=== PATIENT | female | born 1965 | race African-American/Black ===

== ENCOUNTER 2016-10-29 18:50 | Inpatient (IN) | payer MEDICAID ==
[~2016-10-29] VITALS: Ht 167.6 cm; Wt 86.2 kg
[~2016-10-29 18:50] MED LIST: ATARAX25 MG ORAL; CEPHALEXIN500 MG ORAL; CODEINE-GUAIFE120 ML PO; DITROPAN10 MG ORAL; DULERA 200 MCG/13 GM IH; EPZICOM1 TAB ORAL; FUROSEMIDE20 M1 ORAL; GEODON40 MG ORAL; IBUPROFEN600 MG ORAL; LEVAQUIN500 MG ORAL; MEDROL4 MG ORAL; MIRTAZAPINE15 M3 ORAL; NICODERM CQ1 EAC1 TD; NORVIR100 MG ORAL; OYSCO 500+D TA1 EAC1 PO; PROAIR HFA8.5 GM INH; REYATAZ150 MG ORAL; TOPIRAMATE100 MG ORAL; VIREAD300 MG ORAL; mvi; triumeq
[2016-10-29 18:54] VITALS: BP 130/88
[2016-10-29] MEDS ORDERED: PredniSONE 20mg tab ORAL ONE (19:00)
[2016-10-29] MEDS: Albuterol ud Inhalation HHN SCH ×6 (19:07→22:15)
[2016-10-29] MEDS: Ipratropium 0.02% Inh Soln 2.5ml UD HHN SCH ×6 (19:07→22:15)
[2016-10-29] MEDS ORDERED: Ipratropium 0.02% Inh Soln 2.5ml UD HHN ONE (20:15)
[2016-10-29] MEDS ORDERED: Albuterol ud Inhalation HHN ONE (20:15)
[2016-10-29 21:19] LABS: MEAN CORPUSCULAR HEMOGLOBIN 30.7 PG (27.0-31.0); MEAN CORPUSCULAR HGB CONC 30.1 G/DL (32.0-36.0); MEAN CORPUSCULAR VOLUME 102 FL (80-99); MEAN PLATELET VOLUME 9.5 FL (6.5-10.1); PLATELET COUNT 205 K/UL (150-450); RED BLOOD COUNT 5.32 M/UL (4.20-5.40)
[2016-10-29 21:25] LABS: NEUTROPHILS % (AUTO) 86.8 % (45.0-75.0)
[2016-10-29 21:26] LABS: BASOPHILS % (AUTO) 0.7 % (0.0-2.0); LYMPHOCYTES % (AUTO) 8.2 % (20.0-45.0); MONOCYTES % (AUTO) 4.3 % (1.0-10.0)
[2016-10-29] MEDS ORDERED: Azithromycin 500 MG in NS 275 ML IV ONE (21:30)
[2016-10-29] MEDS ORDERED: cefTRIAXone 1 GM in NS 55 ML IV ONE (21:30)
[2016-10-29 21:39] VITALS: BP 123/70
[2016-10-29] MEDS ORDERED: Azithromycin Inj IV ONE (21:46)
[2016-10-29 21:58] LABS: ALANINE AMINOTRANSFERASE 35 U/L (3-33); ALBUMIN/GLOBULIN RATIO 1.1 (1.0-2.7); ANION GAP 13 (5-15); ASPARTATE AMINO TRANSFERASE 31 U/L (5-40); CALCIUM 8.5 mg/dL (8.6-10.2); CARBON DIOXIDE 29 mEQ/L (20-30); CHLORIDE 98 mEQ/L (98-107); CREATININE 0.9 mg/dL (0.5-0.9); GLOMERULAR FILTRATION RATE > 60 mL/min (>60); HEMOLYSIS 39; POTASSIUM 4.2 mEQ/L (3.4-4.9); SODIUM 140 mEQ/L (135-145); TOTAL PROTEIN 6.5 g/dL (6.6-8.7); TROPONIN I < 0.30 ng/mL (<=0.30)
[2016-10-29 22:08] LABS: CKMB 5.5 ng/mL (< 3.8)
--- NOTE | 2016-10-29 22:33 | Emergency Room Report ---
History of Present Illness General Chief Complaint: Dyspnea/Respdistress Source: Patient, EMS Present Illness HPI 51-year-old female presents to ED for evaluation. Per EMS patient has been having wheezing shortness of breath since about 4 PM today. Patient notes history of asthma. States inhaler is not helping. Per EMS patient was initially hypoxic and slowly improving with breathing treatments. She denies any chest pain. Denies any cough. Denies any fevers or chills. No other aggravating relieving factors. Denies any other associated symptoms Allergies: Coded Allergies: SULFA (SULFONAMIDE ANTIBIOTICS) (Verified Allergy, Unknown, 08/05/16) Patient History Past Medical History: DM, asthma, COPD, psych hx Past Surgical History: none Pertinent Family History: none Social History: Denies: alcohol use, drug use, smoking Now: No Immunizations: UTD Reviewed Nursing Documentation: PMH: Agreed, PSxH: Agreed Nursing Documentation-PMH Past Medical History: No History, Except For Hx Asthma: Yes Hx COPD: Yes Hx Diabetes: Yes Hx Cancer: No Hx Gastrointestinal Problems: No Hx Neurological Problems: Yes - schizoprenia Hx Cerebrovascular Accident: No Review of Systems All Other Systems: negative except mentioned in HPI Physical Exam Vital Signs Date Time Temp Pulse Resp B/P Pulse Ox O2 Delivery O2 Flow Rate FiO2 10/29/16 18:47 92 22 112/69 94 Room Air 10/29/16 18:54 98.8 10/29/16 20:02 2.0 28 Sp02 EP Interpretation: reviewed, normal General Appearance: no apparent distress, alert, GCS 15, non-toxic, obese Head: normocephalic Eyes: bilateral eye PERRL, bilateral eye normal inspection ENT: normal ENT inspection Neck: normal inspection Respiratory: decreased breath sounds, wheezing Cardiovascular #1: regular rate, rhythm, no edema Gastrointestinal: normal inspection Rectal: deferred Genitourinary: no CVA tenderness Musculoskeletal: normal inspection Neurologic: alert, oriented x3, responsive, motor strength/tone normal, sensory intact, speech normal Psychiatric: normal inspection Skin: normal inspection Lymphatic: normal inspection Medical Decision Making Diagnostic Impression: Primary Impression: Pneumonia Qualified Codes: J18.9 - Pneumonia, unspecified organism Additional Impression: COPD (chronic obstructive pulmonary disease) Qualified Codes: J44.9 - Chronic obstructive pulmonary disease, unspecified ER Course Hospital Course 51-year-old F presenting to ED with respiratory distress, wheezing Differential diagnoses include: Pneumonia, CHF exacerbation, pneumothorax, fluid overload Clinical course Patient placed on stretcher. On resident programs assistant with hypoxia on room air and tachycardia. After initial history and physical, I ordered nebulizer treatments , prednisone. After 3 treatments patient showed no signs of improvement, remains hypoxic. IV started, given magnesium, breathing treatments continue I ordered labs, IV fluids, EKG, chest x-ray, blood cultures, UA. Labs -leukocytosis noted, hemoglobin/hematocrit stable, electrolytes okay, lactate okay troponins negative CXR - R middle lobe infiltrate EKG - no ishemic changes abx given. Case discussed with Dr. webster and he agreed to the patient to his service for further care and support I feel this is a highly complex case requiring extensive working including EKG/ Rhythm strip, Xray/CT/US, Blood/urine lab work, repeat exams while in ED, and administration of strong opiates/narcotics for pain control, admission to hospital or close patient follow up. Diagnosis - pneumonia, COPD Patient admitted to telemetry in serious condition Labs Test 10/29/16 20:45 White Blood Count 17.0 K/UL (4.8-10.8) Red Blood Count 5.32 M/UL (4.20-5.40) Hemoglobin 16.3 G/DL (12.0-16.0) Hematocrit 54.3 % (37.0-47.0) Mean Corpuscular Volume 102 FL (80-99) Mean Corpuscular Hemoglobin 30.7 PG (27.0-31.0) Mean Corpuscular Hemoglobin Concent 30.1 G/DL (32.0-36.0) Red Cell Distribution Width 16.0 % (11.6-14.8) Platelet Count 205 K/UL (150-450) Mean Platelet Volume 9.5 FL (6.5-10.1) Neutrophils (%) (Auto) 86.8 % (45.0-75.0) Lymphocytes (%) (Auto) 8.2 % (20.0-45.0) Monocytes (%) (Auto) 4.3 % (1.0-10.0) Eosinophils (%) (Auto) 0.0 % (0.0-3.0) Basophils (%) (Auto) 0.7 % (0.0-2.0) Sodium Level 140 mEQ/L (135-145) Potassium Level 4.2 mEQ/L (3.4-4.9) Chloride Level 98 mEQ/L (98-107) Carbon Dioxide Level 29 mEQ/L (20-30) Anion Gap 13 (5-15) Blood Urea Nitrogen 12 mg/dL (7-23) Creatinine 0.9 mg/dL (0.5-0.9) Estimat Glomerular Filtration Rate > 60 mL/min (>60) Glucose Level 137 mg/dL (74-106) Lactic Acid Level 0.80 mmol/L (0.66-2.22) Calcium Level 8.5 mg/dL (8.6-10.2) Total Bilirubin 0.2 mg/dL (0.0-1.2) Aspartate Amino Transf (AST/SGOT) 31 U/L (5-40) Alanine Aminotransferase (ALT/SGPT) 35 U/L (3-33) Alkaline Phosphatase 57 U/L (35-104) Total Creatine Kinase 125 U/L (26-140) Creatine Kinase MB 5.5 ng/mL (< 3.8) Creatine Kinase MB Relative Index 4.4 Troponin I < 0.30 ng/mL (<=0.30) Pro-B-Type Natriuretic Peptide 1766 pg/mL (0-125) Total Protein 6.5 g/dL (6.6-8.7) Albumin 3.5 g/dL (3.5-5.2) Globulin 3.0 g/dL Albumin/Globulin Ratio 1.1 (1.0-2.7) EKG Diagnostic Results Rate: normal Rhythm: NSR ST Segments: no acute changes ASA given to the pt in ED: No Rhythm Strip Diag. Results EP Interpretation: yes Rhythm: NSR, no PVC's, no ectopy Chest X-Ray Diagnostic Results EP Interpretation: Yes Findings: no pneumothorax, no acute cardiopulmonary disease, other - R middle lobe infiltrate Number of Views: 1 Last Vital Signs Date Time Temp Pulse Resp B/P Pulse Ox O2 Delivery O2 Flow Rate FiO2 10/29/16 22:15 103 23 92 Nasal Cannula 3.0 32 10/29/16 21:39 98.8 123/70 Status: improved Disposition: ADMITTED INPATIENT Condition: Serious Referrals: NOT CHOSEN SHERWIN/,REFERRING (PCP) MADELINE TREVINO M.D. Oct 29, 2016 22:33
[2016-10-29] MEDS ORDERED: LORazepam Inj 2mg/ml 1ml IV PRN (23:15)
[2016-10-29] MEDS ORDERED: Ketorolac 30mg Inj IV PRN (23:15)
[2016-10-29] MEDS ORDERED: Morphine Sulfate 2mg/ml Inj IVP PRN (23:15)
[2016-10-29] MEDS ORDERED: Nitroglycerin Subl 0.4mg tab (Bottle Of 25) SL PRN (23:15)
[2016-10-29] MEDS ORDERED: DuoNeb 0.5-3(2.5)mg/3ml neb HHN PRN (23:15)
[2016-10-29] MEDS ORDERED: Promethazine/Codeine 5ml UD ORAL PRN (23:15)
[2016-10-30] VITALS (7 sets, daily range): BP systolic 102–135; BP diastolic 62–87
[2016-10-30] MEDS ORDERED: Solu-MEDROL 125mg Inj IV SCH
[2016-10-30] MEDS ORDERED: Azithromycin Inj IV ONE (00:25)
[2016-10-30] MEDS ORDERED: DuoNeb 0.5-3(2.5)mg/3ml neb HHN PRN (00:45)
[2016-10-30] MEDS ORDERED: Ketorolac 30mg Inj IV PRN (00:45)
[2016-10-30] MEDS ORDERED: Nitroglycerin Subl 0.4mg tab (Bottle Of 25) SL PRN (00:45)
[2016-10-30] MEDS ORDERED: Promethazine/Codeine 5ml UD ORAL PRN (00:45)
[2016-10-30] MEDS ORDERED: LORazepam Inj 2mg/ml 1ml IV PRN (00:45)
[2016-10-30] MEDS ORDERED: Morphine Sulfate 2mg/ml Inj IVP PRN (00:45)
[2016-10-30] MEDS: Solu-MEDROL 125mg Inj IV SCH ×4 (02:25→20:45)
[2016-10-30] MEDS ORDERED: Zosyn 3.375gm inj ONE (03:09)
[2016-10-30] MEDS: Zosyn 3.375gm q8h **Extended infusion IVPB SCH ×6 (03:40→18:32)
[2016-10-30] MEDS: NovoLOG Insulin Flexpen SUBQ SCH ×4 (05:54→21:00)
[2016-10-30] MEDS ORDERED: Piperacillin/Tazobactam 2.25 GM in D5W 55 ML IV SCH ×4 (06:00)
[2016-10-30] MEDS ORDERED: NovoLOG Insulin Flexpen SUBQ SCH (06:30)
[2016-10-30] MEDS: Theophylline ER 100mg ORAL SCH ×3 (08:32→20:45)
[2016-10-30] MEDS: Heparin 5000 units/ml inj SUBQ SCH ×2 (08:33→20:49)
[2016-10-30] MEDS: Epzicom tab ORAL SCH ×2 (08:34→09:00)
[2016-10-30] MEDS: Ritonavir 100mg tab ORAL SCH ×2 (08:35→09:00)
[2016-10-30] MEDS ORDERED: Ritonavir 100mg tab ORAL SCH (09:00)
[2016-10-30] MEDS ORDERED: Theophylline ER 100mg ORAL SCH (09:00)
[2016-10-30] MEDS ORDERED: Heparin 5000 units/ml inj SUBQ SCH (09:00)
[2016-10-30] MEDS ORDERED: Epzicom tab ORAL SCH (09:00)
--- NOTE | 2016-10-30 10:15 | Diagnostic Imaging Report ---
Indications: Shortness of breath Technique: Portable AP chest Findings: Comparison: 09/22 16 Hazy alveolar opacity has developed in the right parahilar region. Linear density persists in the right midlung. Left lung, bilateral pleural surfaces remain clear. Cardiac silhouette remains upper limits of normal in size. Mild pulmonary vascular redistribution persists. IMPRESSION: Development of alveolar opacity likely in the basal aspect of the right upper lobe, compatible with but not specific for pneumonia Persistent subsegmental atelectasis versus scarring versus right minor fissure pleural thickening right midlung Persistent borderline cardiomegaly with mild pulmonary venous hypertension
--- NOTE | 2016-10-30 13:04 | History and Physical ---
History of Present Illness General Date patient seen: Oct 30, 2016 Reason for Hospitalization: Dyspnea/Respdistress Present Illness HPI 51-year-old female with hx of asthma, HIV presented to ED for evaluation of shortness of breath since about 4 PM today. Per EMS patient was initially hypoxic and slowly improving with breathing treatments. No other aggravating relieving factors. Denies any other associated symptoms. Patient's cxr showed RUL infiltrate. she is visibly short of breath with episodes of cough during my interview. Allergies: Coded Allergies: SULFA (SULFONAMIDE ANTIBIOTICS) (Verified Allergy, Unknown, 08/05/16) Medication History Scheduled Albuterol Sulfate* (Proair Hfa*), 1 PUFF INH Q6H, (Reported) Atazanavir Sulfate (Reyataz), 300 MG ORAL DAILY, (Reported) Calcium Carbonate/Vitamin D3 (Oysco 500+D Tablet), 1 EACH PO BID, (Reported) Epzicom (Epzicom Tablet), 1 TAB ORAL DAILY, (Reported) Mirtazapine* (Mirtazapine*), 45 MG ORAL BEDTIME, (Reported) Oxybutynin Chloride (Oxybutynin Chloride), 5 MG ORAL BID, (Reported) Ritonavir* (Norvir*), 100 MG ORAL DAILY, (Reported) Tenofovir Disoproxil Fumarate* (Viread*), 300 MG ORAL DAILY, (Reported) Topiramate* (Topamax*), 100 MG ORAL TWICE A DAY, (Reported) Ziprasidone Hcl* (Geodon*), 80 MG ORAL DAILY, (Reported) Miscellaneous Medications [mvi], (Reported) [triumeq], Unknown Dose, (Reported) Discontinued Medications Furosemide* (Lasix*), 20 MG ORAL DAILY Discontinued Reason: Pt stopped taking med Guaifenesin/Codeine Phosphate (Codeine-Guaifen 10-100 mg/5 ml), 120 ML PO QID PRN Discontinued Reason: Pt stopped taking med Hydroxyzine HCl (Hydroxyzine HCl), 25 MG ORAL FOUR TIMES A DAY, (Reported) Discontinued Reason: Pt stopped taking med Mometasone/Formoterol (Dulera 200 Mcg/5 Mcg Inhaler), 13 GM IH, (Reported) Discontinued Reason: Pt stopped taking med Nicotine 14MG Patch* (Nicoderm Cq 14MG*), 1 EACH TD DAILY, (Reported) Discontinued Reason: Pt stopped taking med Patient History Healthcare decision maker Resuscitation status Full Code Advanced Directive on File Past Medical/Surgical History Past Medical/Surgical History: (1) Pneumonia (2) COPD (chronic obstructive pulmonary disease) (3) Cardiomegaly (4) HIV disease Review of Systems All Other Systems: negative except mentioned in HPI Physical Exam General Appearance: WD/WN Lines, tubes and drains: peripheral, central line HEENT: atraumatic Neck: non-tender, normal alignment Respiratory/Chest: chest wall non-tender, lungs clear Cardiovascular/Chest: normal peripheral pulses, normal rate Abdomen: normal bowel sounds, non tender Genitourinary/Rectal: normal genital exam Extremities: normal range of motion Last 24 Hour Vital Signs Date Time Temp Pulse Resp B/P Pulse Ox O2 Delivery O2 Flow Rate FiO2 10/30/16 12:46 97.5 91 20 135/84 93 Nasal Cannula 3.0 10/30/16 08:24 97.0 96 20 123/62 94 Nasal Cannula 3.0 10/30/16 08:09 82 20 Nasal Cannula 2.0 28 10/30/16 08:00 95 10/30/16 04:10 97.2 92 20 102/76 95 Room Air 10/30/16 04:00 94 10/30/16 01:00 98.5 95 20 112/87 98 Nasal Cannula 2.0 10/30/16 00:47 98.8 103 22 128/72 85 Nasal Cannula 2.0 32 10/30/16 00:26 98.8 103 22 128/72 85 Nasal Cannula 2.0 32 10/29/16 22:35 99 25 93 Simple Mask 6.0 10/29/16 22:15 103 23 92 Nasal Cannula 3.0 32 10/29/16 22:14 103 23 92 Nasal Cannula 3.0 32 10/29/16 21:59 99 25 95 Nasal Cannula 3.0 32 10/29/16 21:59 101 24 94 Nasal Cannula 3.0 32 10/29/16 21:45 97 24 90 Nasal Cannula 3.0 32 10/29/16 21:39 98.8 97 24 123/70 85 Nasal Cannula 3.0 32 10/29/16 20:38 103 24 94 Nasal Cannula 3.0 32 10/29/16 20:23 102 23 91 Nasal Cannula 2.0 28 10/29/16 20:02 103 23 96 Nasal Cannula 2.0 28 10/29/16 19:36 104 23 97 Room Air 10/29/16 19:36 104 23 97 Room Air 10/29/16 19:19 106 20 99 Room Air 10/29/16 19:17 105 20 99 Room Air 10/29/16 19:02 106 19 Room Air 10/29/16 19:02 105 19 97 Room Air 10/29/16 18:57 105 20 Room Air 10/29/16 18:54 98.8 105 20 130/88 96 Room Air 10/29/16 18:47 92 22 112/69 94 Room Air Intake and Output 10/29/16 10/30/16 19:00 07:00 Intake Total 337.5 ml Balance 337.5 ml Intake IV Total 337.5 ml Laboratory Tests Test 10/29/16 20:45 White Blood Count 17.0 K/UL (4.8-10.8) H Red Blood Count 5.32 M/UL (4.20-5.40) Hemoglobin 16.3 G/DL (12.0-16.0) H Hematocrit 54.3 % (37.0-47.0) H Mean Corpuscular Volume 102 FL (80-99) H Mean Corpuscular Hemoglobin 30.7 PG (27.0-31.0) Mean Corpuscular Hemoglobin Concent 30.1 G/DL (32.0-36.0) L Red Cell Distribution Width 16.0 % (11.6-14.8) H Platelet Count 205 K/UL (150-450) Mean Platelet Volume 9.5 FL (6.5-10.1) Neutrophils (%) (Auto) 86.8 % (45.0-75.0) H Lymphocytes (%) (Auto) 8.2 % (20.0-45.0) L Monocytes (%) (Auto) 4.3 % (1.0-10.0) Eosinophils (%) (Auto) 0.0 % (0.0-3.0) Basophils (%) (Auto) 0.7 % (0.0-2.0) Sodium Level 140 mEQ/L (135-145) Potassium Level 4.2 mEQ/L (3.4-4.9) Chloride Level 98 mEQ/L (98-107) Carbon Dioxide Level 29 mEQ/L (20-30) Anion Gap 13 (5-15) Blood Urea Nitrogen 12 mg/dL (7-23) Creatinine 0.9 mg/dL (0.5-0.9) Estimat Glomerular Filtration Rate > 60 mL/min (>60) Glucose Level 137 mg/dL (74-106) H Lactic Acid Level 0.80 mmol/L (0.66-2.22) Calcium Level 8.5 mg/dL (8.6-10.2) L Total Bilirubin 0.2 mg/dL (0.0-1.2) Aspartate Amino Transf (AST/SGOT) 31 U/L (5-40) Alanine Aminotransferase (ALT/SGPT) 35 U/L (3-33) H Alkaline Phosphatase 57 U/L (35-104) Total Creatine Kinase 125 U/L (26-140) Creatine Kinase MB 5.5 ng/mL (< 3.8) H Creatine Kinase MB Relative Index 4.4 Troponin I < 0.30 ng/mL (<=0.30) Pro-B-Type Natriuretic Peptide 1766 pg/mL (0-125) H Total Protein 6.5 g/dL (6.6-8.7) L Albumin 3.5 g/dL (3.5-5.2) Globulin 3.0 g/dL Albumin/Globulin Ratio 1.1 (1.0-2.7) Height (Feet): 5 Height (Inches): 6.00 Weight (Pounds): 190 Medications Current Medications Medications (Trade) Dose Ordered Sig/Jud Route PRN Reason Start Time Stop Time Status Last Admin Dose Admin Abacavir/ Lamivudine (Epzicom) 1 tab DAILY ORAL 10/30/16 09:00 11/29/16 08:59 Albuterol/ Ipratropium (DuoNeb 0.5-3(2.5)mg/3ml) 3 ml Q4H PRN HHN dyspnea 10/30/16 00:45 11/04/16 00:44 Dextrose (Dextrose 50%) STAT PRN IV Hypoglycemia 10/30/16 00:45 11/28/16 23:14 Heparin Sodium (Porcine) (Heparin 5000 units/ml) 5,000 units EVERY 12 HOURS SUBQ 10/30/16 09:00 11/29/16 08:59 10/30/16 08:33 Insulin Aspart (NovoLOG) BEFORE MEALS AND HS SUBQ 10/30/16 06:30 11/29/16 06:29 Ketorolac Tromethamine (Toradol 30mg) 30 mg Q8H PRN IV moderate pain 4-6 10/30/16 00:45 11/04/16 00:44 Lorazepam (Ativan 2mg/ml 1ml) 0.5 mg Q4H PRN IV For Anxiety 10/30/16 00:45 11/05/16 23:14 Methylprednisolone Sodium Succinate (Solu-MEDROL) 60 mg Q6H IV 10/30/16 02:00 11/29/16 01:59 10/30/16 08:33 Mirtazapine (Remeron) 45 mg BEDTIME ORAL 10/30/16 02:45 11/29/16 02:44 Morphine Sulfate (Morphine Sulfate) 2 mg Q4H PRN IVP severe pain 7-10 10/30/16 00:45 11/06/16 00:44 Nitroglycerin (Ntg) 0.4 mg Q5M X 3 DOSES PRN SL Prn Chest Pain 10/30/16 00:45 11/28/16 23:14 Ondansetron HCl (Zofran) 4 mg Q6H PRN IVP Nausea & Vomiting 10/30/16 00:45 11/28/16 23:14 Piperacillin Sod/ Tazobactam Sod/ Dextrose (Zosyn/D5W) 110 ml @ 27.5 mls/hr Q8H IVPB 10/30/16 03:00 11/06/16 02:59 10/30/16 12:15 Promethazine HCl/ Codeine (Phenergan with Codeine) 5 ml Q6H PRN ORAL cough 10/30/16 00:45 11/29/16 00:44 Ritonavir (Norvir) 100 mg DAILY ORAL 10/30/16 09:00 11/29/16 08:59 Temazepam 15 mg 15 mg HSPRN PRN ORAL Insomnia 10/30/16 00:45 11/05/16 23:14 Tenofovir Disoproxil Fumarate (Viread) 300 mg DAILY ORAL 10/30/16 09:00 11/29/16 08:59 Theophylline (Alli-Dur) 100 mg EVERY 12 HOURS ORAL 10/30/16 09:00 11/29/16 08:59 Assessment/Plan Problem List: (1) Pneumonia ICD Codes: J18.9 - Pneumonia, unspecified organism SNOMED: 539235892 (2) HIV disease ICD Codes: B20 - Human immunodeficiency virus [HIV] disease SNOMED: 88230542 (3) Asthma ICD Codes: J45.909 - Unspecified asthma, uncomplicated SNOMED: 098120129 Assessment/Plan IV steroids IV antibiotics respiratory treatment chest pt titrate fio2 to sat of 92% AMBAR CHASE Oct 30, 2016 13:04
[2016-10-30] MEDS ORDERED: PPD Tuberculin Skin Test 5TU IDERMAL ONE (16:00)
[2016-10-31 00:15] VITALS: BP 147/84
[2016-10-31] MEDS: Solu-MEDROL 125mg Inj IV SCH ×4 (02:46→22:01)
[2016-10-31] MEDS: Zosyn 3.375gm q8h **Extended infusion IVPB SCH ×4 (02:47→10:36)
[2016-10-31 04:10] VITALS: BP 135/77
[2016-10-31] MEDS: NovoLOG Insulin Flexpen SUBQ SCH ×4 (06:30→22:01)
[2016-10-31 07:15] LABS: MEAN CORPUSCULAR HEMOGLOBIN 30.7 PG (27.0-31.0); MEAN CORPUSCULAR HGB CONC 29.4 G/DL (32.0-36.0); MEAN CORPUSCULAR VOLUME 105 FL (80-99); MEAN PLATELET VOLUME 9.6 FL (6.5-10.1); PLATELET COUNT 212 K/UL (150-450); RED BLOOD COUNT 5.04 M/UL (4.20-5.40); RED CELL DISTRIBUTION WIDTH 16.3 % (11.6-14.8); WHITE BLOOD COUNT 14.6 K/UL (4.8-10.8)
[2016-10-31 07:24] LABS: ALANINE AMINOTRANSFERASE 32 U/L (3-33); ANION GAP 9 (5-15); ASPARTATE AMINO TRANSFERASE 22 U/L (5-40); CALCIUM 9.1 mg/dL (8.6-10.2); CARBON DIOXIDE 31 mEQ/L (20-30); CHLORIDE 102 mEQ/L (98-107); CREATININE 0.8 mg/dL (0.5-0.9); GLOMERULAR FILTRATION RATE > 60 mL/min (>60); HEMOLYSIS 0; POTASSIUM 5.1 mEQ/L (3.4-4.9); SODIUM 142 mEQ/L (135-145); TOTAL PROTEIN 6.4 g/dL (6.6-8.7)
[2016-10-31 08:35] VITALS: BP 116/56
[2016-10-31] MEDS: Theophylline ER 100mg ORAL SCH (08:35)
[2016-10-31] MEDS: Epzicom tab ORAL SCH (08:35)
[2016-10-31] MEDS: Heparin 5000 units/ml inj SUBQ SCH ×2 (08:37→22:00)
[2016-10-31] MEDS: Ritonavir 100mg tab ORAL SCH (10:36)
[2016-10-31 10:55] LABS: ANISOCYTOSIS 1+; BAND NEUTROPHILS % (MANUAL) 0 % (0-8); BASOPHILS % (MANUAL) 0 % (0-2); EOSINOPHILS % (MANUAL) 0 % (0-3); HYPOCHROMASIA 1+; LYMPHOCYTES % (MANUAL) 2 % (20-45); MACROCYTES 1+; NEUTROPHILS % (MANUAL) 95 % (45-75); PLATELET ESTIMATE ADEQUATE; PLATELET MORPHOLOGY NORMAL; TOTAL CELLS COUNTED 100
--- NOTE | 2016-10-31 11:16 | Diagnostic Imaging Report ---
Indication: DYSPNEA Technique: One view of the chest Comparison: 10/29/26 2 Findings: Again demonstrated is infiltrate in the inferior right upper lobe, appearing slightly improved since the prior study. Bands of atelectasis or scarring are again demonstrated in the right perihilar region. No new infiltrates. The heart remains mildly enlarged. The pleural spaces are clear Impression: Slightly decreased but persistent right upper lobe infiltrate, over 2 days Cardiomegaly
[2016-10-31 12:28] VITALS: BP 128/92
[2016-10-31] MEDS ORDERED: Sodium Polystyrene Sulfonate 15gm Powder ORAL ONE (14:15)
--- NOTE | 2016-10-31 14:24 | Pulmonology Progress Note ---
Assessment/Plan Assessment/Plan ASSESSMENT acute hypoxemic respiratory failure acute asthma exacerbation PNA HIV disease DM schizophrenia PLAN OF CARE O2 , titrate to keep sat above 92% HHN CPT IV steroids and taper as permitted sputum cx empiric abx intiial CXR with R upper lobe infiltrate fup CXR with slightly decreased but persistent right upper lobe infiltrate, over 2 days fungal cytology pending, RPR negative PPD pending antitussive prn HAART therapy resumed ID consult pending T cell subsets with CD4 count pending BS management with SS of insulin DVT prophylaxis psych meds resumed fiancee reported night jerks ? seizure? SE of psych meds psych eval transfer to [facility] floor case discussed and evaluated by supervising physician Subjective Allergies: Coded Allergies: SULFA (SULFONAMIDE ANTIBIOTICS) (Verified Allergy, Unknown, 08/05/16) Subjective leukocytosis trending down, afebrile, still congested, wheezing, fiancee at the bedside reported "jerks "at night, no seizure disorder, never had these jerks before patient with psych history taking psych meds Objective Last 24 Hour Vital Signs Date Time Temp Pulse Resp B/P Pulse Ox O2 Delivery O2 Flow Rate FiO2 10/31/16 12:28 97.0 94 20 128/92 94 Nasal Cannula 2.0 10/31/16 08:35 97.0 88 20 116/56 97 Nasal Cannula 2.0 10/31/16 08:00 95 10/31/16 04:10 97.0 91 20 135/77 96 Nasal Cannula 10/31/16 00:15 97.7 93 20 147/84 94 Room Air 10/31/16 00:00 93 10/30/16 20:00 93 10/30/16 20:00 97.0 92 18 111/63 Nasal Cannula 2.0 90 10/30/16 16:00 90 10/30/16 16:00 97.7 90 18 123/76 Nasal Cannula 2.0 91 Intake and Output 10/30/16 10/31/16 19:00 07:00 Intake Total 240 ml 170.0 ml Balance 240 ml 170.0 ml Intake Oral 240 ml 60 ml IV Total 110.0 ml # Voids 2 General Appearance: WD/WN, no acute distress HEENT: normocephalic, mucous membranes moist Respiratory/Chest: chest wall non-tender, no respiratory distress, no accessory muscle use, expiratory wheezing - bilaterally Cardiovascular: normal peripheral pulses, normal rate, regular rhythm, no JVD Abdomen: normal bowel sounds, soft, non tender - obese, no organomegaly Extremities: no edema, pedal pulses normal Neurologic/Psychiatric: no motor/sensory deficits, alert, oriented x 3, responsive Lymphatic: no neck adenopathy Musculoskeletal: normal muscle bulk Microbiology Date/Time Source Procedure Growth Status 10/29/16 21:00 Blood Arm Right Blood Culture - Preliminary NO GROWTH AFTER 24 HOURS Resulted 10/29/16 20:45 Blood Arm Right Blood Culture - Preliminary NO GROWTH AFTER 24 HOURS Resulted Laboratory Tests 10/30/16 17:50: White Blood Count [Pending], Lymphocytes [Pending], Lactate Dehydrogenase 294H, Percent CD3 Cells [Pending], Absolute CD3 Count [Pending], Percent CD4 Cells [ Pending], Absolute CD4 Count [Pending], T-Lymphocyte CD4/CD8 Ratio [Pending], Percent CD8 Cells [Pending], Absolute CD8 Count [Pending], Rapid Plasma Reagin Non reactive, Coccidioides Antibody (Comp Fix) [Pending], Cryptococcus Antigen [ Pending], Toxoplasma IgG Antibody [Pending], Toxoplasma IgM Antibody [Pending] 10/31/16 06:05: White Blood Count 14.6H, Red Blood Count 5.04, Hemoglobin 15.5, Hematocrit 52.7H , Mean Corpuscular Volume 105H, Mean Corpuscular Hemoglobin 30.7, Mean Corpuscular Hemoglobin Concent 29.4L, Red Cell Distribution Width 16.3H, Platelet Count 212, Mean Platelet Volume 9.6, Neutrophils (%) (Auto) , Lymphocytes (%) (Auto) , Monocytes (%) (Auto) , Eosinophils (%) (Auto) , Basophils (%) (Auto) , Differential Total Cells Counted 100, Neutrophils % ( Manual) 95H, Lymphocytes % (Manual) 2L, Monocytes % (Manual) 3, Eosinophils % ( Manual) 0, Basophils % (Manual) 0, Band Neutrophils 0, Platelet Estimate Adequate, Platelet Morphology Normal, Hypochromasia 1+, Anisocytosis 1+, Macrocytosis 1+, Sodium Level 142, Potassium Level 5.1H, Chloride Level 102, Carbon Dioxide Level 31H, Anion Gap 9, Blood Urea Nitrogen 20, Creatinine 0.8, Estimat Glomerular Filtration Rate > 60, Glucose Level 167H, Calcium Level 9.1, Total Bilirubin < 0.2, Aspartate Amino Transf (AST/SGOT) 22, Alanine Aminotransferase (ALT/SGPT) 32, Alkaline Phosphatase 56, Total Protein 6.4L, Albumin 3.2L, Globulin 3.2, Albumin/Globulin Ratio 1.0 Current Medications Medications (Trade) Dose Ordered Sig/Jud Route PRN Reason Start Time Stop Time Status Last Admin Dose Admin Abacavir/ Lamivudine (Epzicom) 1 tab DAILY ORAL 10/30/16 09:00 11/29/16 08:59 10/31/16 08:35 Albuterol/ Ipratropium (DuoNeb 0.5-3(2.5)mg/3ml) 3 ml Q4H PRN HHN dyspnea 10/30/16 00:45 11/04/16 00:44 Dextrose (Dextrose 50%) STAT PRN IV Hypoglycemia 10/30/16 00:45 11/28/16 23:14 Heparin Sodium (Porcine) (Heparin 5000 units/ml) 5,000 units EVERY 12 HOURS SUBQ 10/30/16 09:00 11/29/16 08:59 10/31/16 08:37 Insulin Aspart (NovoLOG) BEFORE MEALS AND HS SUBQ 10/30/16 06:30 11/29/16 06:29 10/31/16 13:17 Ketorolac Tromethamine (Toradol 30mg) 30 mg Q8H PRN IV moderate pain 4-6 10/30/16 00:45 11/04/16 00:44 Lorazepam (Ativan 2mg/ml 1ml) 0.5 mg Q4H PRN IV For Anxiety 10/30/16 00:45 11/05/16 23:14 Methylprednisolone Sodium Succinate (Solu-MEDROL) 60 mg Q6H IV 10/30/16 02:00 11/29/16 01:59 10/31/16 13:16 Mirtazapine (Remeron) 45 mg BEDTIME ORAL 10/30/16 02:45 11/29/16 02:44 10/30/16 20:45 Morphine Sulfate (Morphine Sulfate) 2 mg Q4H PRN IVP severe pain 7-10 10/30/16 00:45 11/06/16 00:44 10/30/16 17:53 Nitroglycerin (Ntg) 0.4 mg Q5M X 3 DOSES PRN SL Prn Chest Pain 10/30/16 00:45 11/28/16 23:14 Ondansetron HCl (Zofran) 4 mg Q6H PRN IVP Nausea & Vomiting 10/30/16 00:45 11/28/16 23:14 Piperacillin Sod/ Tazobactam Sod/ Dextrose (Zosyn/D5W) 110 ml @ 27.5 mls/hr Q8H IVPB 10/30/16 03:00 11/06/16 02:59 10/31/16 10:36 Promethazine HCl/ Codeine (Phenergan with Codeine) 5 ml Q6H PRN ORAL cough 10/30/16 00:45 11/29/16 00:44 Ritonavir (Norvir) 100 mg DAILY ORAL 10/30/16 09:00 11/29/16 08:59 10/31/16 10:36 Sodium Polystyrene Sulfonate (Kayexalate) 30 gm ONCE ONCE ORAL 10/31/16 14:15 10/31/16 14:16 Temazepam 15 mg 15 mg HSPRN PRN ORAL Insomnia 10/30/16 00:45 11/05/16 23:14 Tenofovir Disoproxil Fumarate (Viread) 300 mg DAILY ORAL 10/30/16 09:00 11/29/16 08:59 10/31/16 08:35 Theophylline (Alli-Dur) 100 mg EVERY 12 HOURS ORAL 10/30/16 09:00 11/29/16 08:59 10/31/16 08:35 [facility]New[facility] HospitalSavannah Martinez NP Oct 31, 2016 14:24
[2016-10-31 14:25] LABS: CD3 ABSOLUTE 515 /uL (622-2402); CD4 ABSOLUTE 257 /uL (359-1519); CD8 ABSOLUTE 274 /uL (109-897); LYMPHOCYTES ABSOLUTE 0.8 x10E3/uL (0.7-3.1); LYMPHS 6 % (.); NRBC 0 % (0 - 0); WBC 13.8 x10E3/uL (3.4-10.8)
[2016-10-31 16:41] VITALS: BP 126/88
[2016-10-31] MEDS ORDERED: LORazepam Inj 2mg/ml 1ml IV PRN (18:00)
[2016-10-31] MEDS ORDERED: Nitroglycerin Subl 0.4mg tab (Bottle Of 25) SL PRN (18:00)
[2016-10-31] MEDS ORDERED: Morphine Sulfate 2mg/ml Inj IVP PRN (18:00)
[2016-10-31] MEDS: Piperacillin/Tazobactam 3.375 GM in D5W 110 ML IVPB SCH (18:43)
[2016-10-31] MEDS ORDERED: Promethazine/Codeine 5ml UD ORAL PRN (18:45)
--- NOTE | 2016-10-31 19:28 | Consultation ---
Consult Note Assessment/Plan ID Dic # [id number] A: // Asthma exacerbation / Pna - SCx : P Hx of Kleb Pna // HIV(+) - CD4 : 257 and ( VL < 20 as per pt on Triumeq) // Leukocytosis - ( on steroids ) // Tobacco abuse // Negative MRSA, VRE screens // Sulfa allergy // Full Code PLAN: - cont zosyn d# 2 , add Zithro d# 1 - continue cART ( triumeq ) - ok for pt to take own med - taper steroids per pulm - f/u cultures - monitor CBC, temperatures - monitor BMP - monitor CXR - tobacco cessation J LUIS ANDERSON M.D. Oct 31, 2016 19:28
[2016-10-31 20:00] VITALS: BP 128/88
[2016-10-31] MEDS ORDERED: Solu-MEDROL 125mg Inj IV SCH (22:00)
[2016-11-01] VITALS (8 sets, daily range): BP systolic 120–153; BP diastolic 68–93
[2016-11-01] MEDS ORDERED: Azithromycin Inj IV ONE (00:45)
[2016-11-01] MEDS: Azithromycin 500 MG in D5W 275 ML IV SCH ×2 (01:02→23:00)
--- NOTE | 2016-11-01 01:57 | Consultation ---
DATE OF CONSULTATION: NOTE: INCOMPLETE DICTATION INFECTIOUS DISEASE CONSULTATION: REASON FOR CONSULTATION: Evaluation of patient for pneumonia, bronchitis, and antibiotic management. HISTORY OF PRESENT ILLNESS: The patient is a 51-year-old female with multiple medical problems as listed below, who was admitted to this medical center due to shortness of breath and cough. The patient has history of HIV. Feliciano Turner M.D. DR: Donte JOB#: [id number] CC:
[2016-11-01] MEDS: Piperacillin/Tazobactam 3.375 GM in D5W 110 ML IVPB SCH ×5 (03:00→19:22)
--- NOTE | 2016-11-01 04:37 | Consultation ---
DATE OF CONSULTATION: INFECTIOUS DISEASE CONSULTATION: REFERRING PHYSICIAN: Massiel Wong M.D. REASON FOR CONSULTATION: Evaluation of patient for HIV, pneumonia, and antibiotic management. HISTORY OF PRESENT ILLNESS: The patient is a 51-year-old female well known to our service from prior admissions. The patient came to the hospital due to shortness of breath, cough, and admitted with impression of pneumonia. The patient has history of HIV according to her chart review has been within normal range. About three weeks ago, the patient was found to have leukocytosis steroids . The patient has history of tobacco abuse. Infectious Disease consultation has been requested for further evaluation of the patient's antibiotic management. PAST MEDICAL HISTORY: 1. History of HIV, CD4 count within normal exam three weeks ago. 2. History of tobacco abuse. MEDICATIONS: Medications at home, the patient is getting Triumeq. ALLERGIES: Sulfa. FAMILY HISTORY: Noncontributory. REVIEW OF SYSTEMS: HEENT: No recent change in vision or hearing. Pulmonary: As mentioned. Cardiovascular: No chest pain or palpitations. Gastrointestinal/Abdomen: No nausea or vomiting. Genitourinary: No dysuria. Musculoskeletal: No pain in extremities. PHYSICAL EXAMINATION: VITAL SIGNS: Pulse 86, respiratory rate 18, temperature 98 degrees, and blood pressure 120/88. HEENT: Mouth, no thrush. No icterus. NECK: No trach. CHEST: Coarse breathing sounds. HEART: S1 and S2. ABDOMEN: Soft. EXTREMITIES: No cyanosis. NEUROLOGIC: Awake. LABORATORY AND DIAGNOSTIC DATA: WBC 14, hemoglobin 15, and platelets 212,000. UA unremarkable. BUN and creatinine 13 and 0.8. Alkaline phosphatase within normal range. LDH 294. CD4 count 257. Blood culture is pending. Chest x-ray slightly decrease, but presence of right upper lobe infiltrate. ASSESSMENT: The patient is a 51-year-old female with multiple medical problems has been admitted to this medical center with the community-acquired pneumonia with history of human immunodeficiency. The patient has CD4 count over 200. Doubt PCP the patient's pneumonia. The patient would benefit from coverage of atypicals community-acquired pneumonia. PLAN: 1. We will continue the patient on Zosyn, we will add azithromycin. 2. Monitor CBC. 3. Montior BMP. 4. Monitor the patient's HIV medication. 5. Monitor chest x-ray. 6. Based on the patient's clinical course and labs, we will do further recommendation. Thank you, Dr. Wong, for allowing me to participate in the care of this patient. I will follow the patient with you during this hospitalization. Feliciano Turner M.D. DR: Donte JOB#: [id number] CC:
[2016-11-01] MEDS: Solu-MEDROL 125mg Inj IV SCH (06:36)
[2016-11-01] MEDS: NovoLOG Insulin Flexpen SUBQ SCH ×4 (06:37→21:01)
[2016-11-01 07:18] LABS: MEAN CORPUSCULAR HEMOGLOBIN 30.3 PG (27.0-31.0); MEAN CORPUSCULAR VOLUME 104 FL (80-99); MEAN PLATELET VOLUME 9.3 FL (6.5-10.1); PLATELET COUNT 200 K/UL (150-450); RED CELL DISTRIBUTION WIDTH 16.5 % (11.6-14.8); WHITE BLOOD COUNT 18.6 K/UL (4.8-10.8)
[2016-11-01 07:21] LABS: ANION GAP 7 (5-15); CARBON DIOXIDE 37 mEQ/L (20-30); CHLORIDE 101 mEQ/L (98-107); CREATININE 0.7 mg/dL (0.5-0.9); GLOMERULAR FILTRATION RATE > 60 mL/min (>60); HEMOLYSIS 7; POTASSIUM 4.3 mEQ/L (3.4-4.9); SODIUM 145 mEQ/L (135-145)
[2016-11-01] MEDS: Theophylline ER 100mg ORAL SCH (08:21)
[2016-11-01] MEDS: Heparin 5000 units/ml inj SUBQ SCH ×2 (08:24→21:01)
[2016-11-01] MEDS ORDERED: Epzicom tab ORAL SCH (09:00)
[2016-11-01] MEDS ORDERED: Ritonavir 100mg tab ORAL SCH (09:00)
--- NOTE | 2016-11-01 09:10 | Infectious Diseases Prog Note ---
Assessment/Plan Assessment/Plan ASSESSMENT: 51 y/o female with: // Asthma exacerbation / Pna - SCx, coccidiodes pending - CXR 10/31: Slightly decreased but persistent right upper lobe infiltrate - h/o K.pneumoniae // HIV(+), on triumeq - CD4 257(32%), VL < 20 as per pt // Leukocytosis - worse, afebrile ( on steroids ) // Tobacco abuse // Negative RPR // Negative MRSA, VRE screens // Sulfa allergy // Full Code PLAN: - continue zosyn d# 3, azithromycin d# 2 / 5 - continue cART ( triumeq ) - ok for pt to take own med - taper steroids per pulm - f/u cultures - monitor CBC, temperatures - monitor BMP - monitor CXR - tobacco cessation Subjective Allergies: Coded Allergies: SULFA (SULFONAMIDE ANTIBIOTICS) (Verified Allergy, Unknown, 08/05/16) Subjective remains afebrile. WBC up Objective Vital Signs Last 24 Hour Vital Signs Date Time Temp Pulse Resp B/P Pulse Ox O2 Delivery O2 Flow Rate FiO2 11/01/16 05:30 97.7 96 18 120/83 93 Nasal Cannula 4.0 11/01/16 04:00 97.7 96 18 120/83 84 Nasal Cannula 11/01/16 00:23 98.1 93 20 123/77 90 Nasal Cannula 10/31/16 20:00 98.2 94 19 128/88 89 Nasal Cannula 10/31/16 16:41 97.2 94 20 126/88 93 Nasal Cannula 2.0 10/31/16 12:28 97.0 94 20 128/92 94 Nasal Cannula 2.0 Height (Feet): 5 Height (Inches): 6.00 Weight (Pounds): 190 General Appearance: no acute distress Respiratory/Chest: no respiratory distress Cardiovascular: normal rate, regular rhythm Abdomen: normal bowel sounds, soft, non tender, non distended Microbiology Date/Time Source Procedure Growth Status 10/29/16 21:00 Blood Arm Right Blood Culture - Preliminary NO GROWTH AFTER 24 HOURS Resulted 10/29/16 20:45 Blood Arm Right Blood Culture - Preliminary NO GROWTH AFTER 24 HOURS Resulted Laboratory Tests Test 11/01/16 06:15 White Blood Count 18.6 K/UL (4.8-10.8) H Red Blood Count 5.00 M/UL (4.20-5.40) Hemoglobin 15.1 G/DL (12.0-16.0) Hematocrit 52.2 % (37.0-47.0) H Mean Corpuscular Volume 104 FL (80-99) H Mean Corpuscular Hemoglobin 30.3 PG (27.0-31.0) Mean Corpuscular Hemoglobin Concent 29.0 G/DL (32.0-36.0) L Red Cell Distribution Width 16.5 % (11.6-14.8) H Platelet Count 200 K/UL (150-450) Mean Platelet Volume 9.3 FL (6.5-10.1) Neutrophils (%) (Auto) % (45.0-75.0) Lymphocytes (%) (Auto) % (20.0-45.0) Monocytes (%) (Auto) % (1.0-10.0) Eosinophils (%) (Auto) % (0.0-3.0) Basophils (%) (Auto) % (0.0-2.0) Neutrophils % (Manual) Pending Lymphocytes % (Manual) Pending Platelet Estimate Pending Platelet Morphology Pending Sodium Level 145 mEQ/L (135-145) Potassium Level 4.3 mEQ/L (3.4-4.9) Chloride Level 101 mEQ/L (98-107) Carbon Dioxide Level 37 mEQ/L (20-30) H Anion Gap 7 (5-15) Blood Urea Nitrogen 21 mg/dL (7-23) Creatinine 0.7 mg/dL (0.5-0.9) Estimat Glomerular Filtration Rate > 60 mL/min (>60) Glucose Level 142 mg/dL (74-106) H Calcium Level 9.0 mg/dL (8.6-10.2) Current Medications Medications (Trade) Dose Ordered Sig/Jud Route PRN Reason Start Time Stop Time Status Last Admin Dose Admin Albuterol/ Ipratropium (DuoNeb 0.5-3(2.5)mg/3ml) 3 ml Q4H PRN HHN dyspnea 10/31/16 18:00 11/05/16 17:59 Azithromycin/ Dextrose (Zithromax/D5W) 275 ml @ 275 mls/hr Q24HRS IV 10/31/16 23:00 11/06/16 23:59 11/01/16 01:02 Dextrose (Dextrose 50%) STAT PRN IV Hypoglycemia 10/31/16 18:00 11/30/16 17:59 Heparin Sodium (Porcine) (Heparin 5000 units/ml) 5,000 units EVERY 12 HOURS SUBQ 10/31/16 21:00 11/30/16 20:59 11/01/16 08:24 Insulin Aspart (NovoLOG) BEFORE MEALS AND HS SUBQ 10/31/16 21:00 11/30/16 20:59 11/01/16 06:37 Ketorolac Tromethamine (Toradol 30mg) 30 mg Q8H PRN IV Moderate Pain (Pain Scale 4-6) 11/01/16 18:00 11/06/16 17:59 Lorazepam (Ativan 2mg/ml 1ml) 0.5 mg Q4H PRN IV For Anxiety 10/31/16 18:00 11/07/16 17:59 Methylprednisolone Sodium Succinate (Solu-MEDROL) 60 mg Q8HR IV 10/31/16 22:00 11/30/16 21:59 11/01/16 06:36 Mirtazapine (Remeron) 45 mg BEDTIME ORAL 10/31/16 21:00 11/30/16 20:59 10/31/16 22:34 Morphine Sulfate (Morphine Sulfate) 2 mg Q4H PRN IVP Severe Pain (Pain Scale 7-10) 10/31/16 18:00 11/07/16 17:59 11/01/16 02:21 Nitroglycerin (Ntg) 0.4 mg Q5M X 3 DOSES PRN SL Prn Chest Pain 10/31/16 18:00 11/30/16 17:59 Non-Formulary Medication 1 ea 1 ea DAILY ORAL 11/01/16 09:00 12/01/16 08:59 UNV Ondansetron HCl (Zofran) 4 mg Q6H PRN IVP Nausea & Vomiting 10/31/16 18:45 11/30/16 18:44 Piperacillin Sod/ Tazobactam Sod/ Dextrose (Zosyn/D5W) 110 ml @ 27.5 mls/hr Q8H IVPB 10/31/16 19:00 11/07/16 18:59 10/31/16 18:43 Promethazine HCl/ Codeine (Phenergan with Codeine) 5 ml Q6H PRN ORAL cough 10/31/16 18:45 11/30/16 18:44 Temazepam (Restoril) 15 mg HSPRN PRN ORAL Insomnia 10/31/16 21:00 11/07/16 20:59 Theophylline (Alli-Dur) 100 mg DAILY ORAL 11/01/16 09:00 12/01/16 08:59 11/01/16 08:21 RAINA HENSLEY Nov 01, 2016 09:10
[2016-11-01 10:08] LABS: BAND NEUTROPHILS % (MANUAL) 2 % (0-8); LYMPHOCYTES % (MANUAL) 3 % (20-45); NEUTROPHILS % (MANUAL) 93 % (45-75); TOTAL CELLS COUNTED 100
[2016-11-01 10:09] LABS: ANISOCYTOSIS 1+; BASOPHILS % (MANUAL) 0 % (0-2); EOSINOPHILS % (MANUAL) 0 % (0-3); MACROCYTES 1+; PLATELET ESTIMATE ADEQUATE; PLATELET MORPHOLOGY NORMAL; POLYCHROMASIA OCCASIONAL
--- NOTE | 2016-11-01 11:01 | Pulmonology Progress Note ---
Assessment/Plan Assessment/Plan ASSESSMENT acute hypoxemic respiratory failure acute asthma exacerbation PNA HIV disease DM schizophrenia PLAN OF CARE O2 , titrate to keep sat above 92% HHN CPT IV steroids taper sputum cx ; blood cx preliminary negative empiric abx initial CXR with R upper lobe infiltrate fup CXR with slightly decreased but persistent right upper lobe infiltrate, over 2 days fungal cytology pending, RPR negative PPD pending antitussive prn HAART therapy resumed ID follows T cell subsets noted with CD4 count 257 BS management with SS of insulin DVT prophylaxis psych meds resumed fiancee reported night jerks ? seizure? SE of psych meds psych eval case discussed and evaluated by supervising physician Subjective Allergies: Coded Allergies: SULFA (SULFONAMIDE ANTIBIOTICS) (Verified Allergy, Unknown, 08/05/16) Subjective leukocytosis with trending up today, afebrile, still wheezing, Objective Last 24 Hour Vital Signs Date Time Temp Pulse Resp B/P Pulse Ox O2 Delivery O2 Flow Rate FiO2 11/01/16 08:00 97.4 98 19 153/86 96 Nasal Cannula 2.0 11/01/16 05:30 97.7 96 18 120/83 93 Nasal Cannula 4.0 11/01/16 04:00 97.7 96 18 120/83 84 Nasal Cannula 11/01/16 00:23 98.1 93 20 123/77 90 Nasal Cannula 10/31/16 20:00 98.2 94 19 128/88 89 Nasal Cannula 10/31/16 16:41 97.2 94 20 126/88 93 Nasal Cannula 2.0 10/31/16 12:28 97.0 94 20 128/92 94 Nasal Cannula 2.0 Intake and Output 10/31/16 11/01/16 19:00 07:00 Intake Total 470.0 ml 590.0 ml Balance 470.0 ml 590.0 ml Intake Oral 360 ml 240 ml IV Total 110.0 ml 350.0 ml # Voids 2 3 Objective General Appearance: WD/WN, no acute distress HEENT: normocephalic, mucous membranes moist Respiratory/Chest: chest wall non-tender, no respiratory distress, no accessory muscle use, bilateral expiratory wheezes Cardiovascular: normal peripheral pulses, normal rate, regular rhythm, no JVD Abdomen: normal bowel sounds, soft, non tender - obese, no organomegaly Extremities: no edema, pedal pulses normal Neurologic/Psychiatric: no motor/sensory deficits, alert, oriented x 3, responsive Lymphatic: no neck adenopathy Musculoskeletal: normal muscle bulk Microbiology Date/Time Source Procedure Growth Status 10/29/16 21:00 Blood Arm Right Blood Culture - Preliminary NO GROWTH AFTER 48 HOURS Resulted 10/29/16 20:45 Blood Arm Right Blood Culture - Preliminary NO GROWTH AFTER 48 HOURS Resulted Laboratory Tests 11/01/16 06:15: White Blood Count 18.6H, Red Blood Count 5.00, Hemoglobin 15.1, Hematocrit 52.2H , Mean Corpuscular Volume 104H, Mean Corpuscular Hemoglobin 30.3, Mean Corpuscular Hemoglobin Concent 29.0L, Red Cell Distribution Width 16.5H, Platelet Count 200, Mean Platelet Volume 9.3, Neutrophils (%) (Auto) , Lymphocytes (%) (Auto) , Monocytes (%) (Auto) , Eosinophils (%) (Auto) , Basophils (%) (Auto) , Differential Total Cells Counted 100, Neutrophils % ( Manual) 93H, Lymphocytes % (Manual) 3L, Monocytes % (Manual) 2, Eosinophils % ( Manual) 0, Basophils % (Manual) 0, Band Neutrophils 2, Platelet Estimate Adequate, Platelet Morphology Normal, Polychromasia Occasional, Anisocytosis 1+ , Macrocytosis 1+, Sodium Level 145, Potassium Level 4.3, Chloride Level 101, Carbon Dioxide Level 37H, Anion Gap 7, Blood Urea Nitrogen 21, Creatinine 0.7, Estimat Glomerular Filtration Rate > 60, Glucose Level 142H, Calcium Level 9.0 Current Medications Medications (Trade) Dose Ordered Sig/Jud Route PRN Reason Start Time Stop Time Status Last Admin Dose Admin Albuterol/ Ipratropium (DuoNeb 0.5-3(2.5)mg/3ml) 3 ml Q4H PRN HHN dyspnea 10/31/16 18:00 11/05/16 17:59 Azithromycin/ Dextrose (Zithromax/D5W) 275 ml @ 275 mls/hr Q24HRS IV 10/31/16 23:00 11/06/16 23:59 11/01/16 01:02 Dextrose (Dextrose 50%) STAT PRN IV Hypoglycemia 10/31/16 18:00 11/30/16 17:59 Heparin Sodium (Porcine) (Heparin 5000 units/ml) 5,000 units EVERY 12 HOURS SUBQ 10/31/16 21:00 3/5/17 20:59 11/01/16 08:24 Insulin Aspart (NovoLOG) BEFORE MEALS AND HS SUBQ 10/31/16 21:00 11/30/16 20:59 11/01/16 06:37 Ketorolac Tromethamine (Toradol 30mg) 30 mg Q8H PRN IV Moderate Pain (Pain Scale 4-6) 11/01/16 18:00 11/06/16 17:59 Lorazepam (Ativan 2mg/ml 1ml) 0.5 mg Q4H PRN IV For Anxiety 10/31/16 18:00 11/07/16 17:59 Methylprednisolone Sodium Succinate (Solu-MEDROL) 60 mg Q8HR IV 10/31/16 22:00 11/30/16 21:59 11/01/16 06:36 Mirtazapine (Remeron) 45 mg BEDTIME ORAL 10/31/16 21:00 11/30/16 20:59 10/31/16 22:34 Morphine Sulfate (Morphine Sulfate) 2 mg Q4H PRN IVP Severe Pain (Pain Scale 7-10) 10/31/16 18:00 11/07/16 17:59 11/01/16 02:21 Nitroglycerin (Ntg) 0.4 mg Q5M X 3 DOSES PRN SL Prn Chest Pain 10/31/16 18:00 11/30/16 17:59 Non-Formulary Medication 1 ea 1 ea DAILY ORAL 11/01/16 09:00 12/01/16 08:59 UNV Ondansetron HCl (Zofran) 4 mg Q6H PRN IVP Nausea & Vomiting 10/31/16 18:45 11/30/16 18:44 Piperacillin Sod/ Tazobactam Sod/ Dextrose (Zosyn/D5W) 110 ml @ 27.5 mls/hr Q8H IVPB 10/31/16 19:00 11/07/16 18:59 10/31/16 18:43 Promethazine HCl/ Codeine (Phenergan with Codeine) 5 ml Q6H PRN ORAL cough 10/31/16 18:45 11/30/16 18:44 Temazepam (Restoril) 15 mg HSPRN PRN ORAL Insomnia 10/31/16 21:00 11/07/16 20:59 Theophylline (Alli-Dur) 100 mg DAILY ORAL 11/01/16 09:00 12/01/16 08:59 11/01/16 08:21 [facility] NP Nov 01, 2016 11:01
[2016-11-01] MEDS ORDERED: Tubing IV Secondary IV ONE (14:34)
[2016-11-01] MEDS ORDERED: NS 275ml ONE (14:34)
--- NOTE | 2016-11-01 16:10 | Cardiology Report ---
APPROVED REPORT EKG Measurement Heart [id number] Sinus tachycardia Biatrial enlargement Left axis deviation Abnormal ECG
[2016-11-01] MEDS ORDERED: Ketorolac 30mg Inj IV PRN (18:00)
[2016-11-01] MEDS ORDERED: Solu-MEDROL 125mg Inj IV SCH (21:00)
[2016-11-01] MEDS: DuoNeb 0.5-3(2.5)mg/3ml neb HHN PRN (23:50)
[2016-11-02] VITALS: BP 120/65
[2016-11-02] MEDS: Piperacillin/Tazobactam 3.375 GM in D5W 110 ML IVPB SCH ×3 (03:05→19:20)
[2016-11-02 04:00] VITALS: BP 129/77
[2016-11-02] MEDS: NovoLOG Insulin Flexpen SUBQ SCH ×4 (06:01→22:20)
[2016-11-02 07:19] LABS: MEAN CORPUSCULAR HEMOGLOBIN 30.2 PG (27.0-31.0); MEAN CORPUSCULAR HGB CONC 28.7 G/DL (32.0-36.0); MEAN CORPUSCULAR VOLUME 105 FL (80-99); MEAN PLATELET VOLUME 9.7 FL (6.5-10.1); PLATELET COUNT 186 K/UL (150-450); RED BLOOD COUNT 4.91 M/UL (4.20-5.40); RED CELL DISTRIBUTION WIDTH 16.2 % (11.6-14.8); WHITE BLOOD COUNT 14.4 K/UL (4.8-10.8)
[2016-11-02 07:50] VITALS: BP 119/85
[2016-11-02] MEDS ORDERED: Tubing IV Secondary IV ONE ×2 (08:58→09:40)
[2016-11-02] MEDS ORDERED: NS 275ml ONE (08:58)
[2016-11-02 09:04] LABS: ANION GAP 10 (5-15); CALCIUM 8.8 mg/dL (8.6-10.2); CARBON DIOXIDE 38 mEQ/L (20-30); CHLORIDE 98 mEQ/L (98-107); CREATININE 0.8 mg/dL (0.5-0.9); GLOMERULAR FILTRATION RATE > 60 mL/min (>60); HEMOLYSIS 2; SODIUM 146 mEQ/L (135-145)
--- NOTE | 2016-11-02 09:10 | Pulmonology Progress Note ---
Assessment/Plan Assessment/Plan ASSESSMENT acute hypoxemic respiratory failure acute asthma exacerbation PNA HIV disease DM schizophrenia PLAN OF CARE O2 , titrate to keep sat above 92% HHN CPT IV steroids taper to daily in am sputum cx ; blood cx preliminary negative empiric abx initial CXR with R upper lobe infiltrate fup CXR with slightly decreased but persistent right upper lobe infiltrate, over 2 days CXR in am fungal cytology pending, RPR negative PPD pending antitussive prn HAART therapy resumed ID follows T cell subsets noted with CD4 count 257 BS management with SS of insulin DVT prophylaxis psych meds resumed fiancee reported night jerks ? seizure? SE of psych meds psych eval decrease pain medications dose fall precautions case discussed and evaluated by supervising physician Subjective Allergies: Coded Allergies: SULFA (SULFONAMIDE ANTIBIOTICS) (Verified Allergy, Unknown, 08/05/16) Subjective leukocytosis with trend down, afebrile, less wheezing on 3 L O2 via NC, pulse ox stable drowsy but easily arousable , last night noted by staff taut she slided from the bed and found on the floor denies any injury, trauma, fall, pain Objective Last 24 Hour Vital Signs Date Time Temp Pulse Resp B/P Pulse Ox O2 Delivery O2 Flow Rate FiO2 11/02/16 07:50 97.4 90 18 119/85 93 Nasal Cannula 3.0 11/02/16 04:00 97.2 90 18 129/77 92 Nasal Cannula 3.0 11/02/16 00:01 97 20 99 Nasal Cannula 4.0 36 11/02/16 00:00 36 11/02/16 00:00 97.2 90 19 120/65 83 Nasal Cannula 3.0 11/01/16 23:53 94 20 99 Nasal Cannula 4.0 98 11/01/16 23:52 94 20 Nasal Cannula 4.0 36 11/01/16 20:00 98.2 91 19 126/68 Nasal Cannula 2.0 11/01/16 19:47 Nasal Cannula 4.0 36 11/01/16 19:47 94 Nasal Cannula 4.0 36 11/01/16 19:46 89 20 Nasal Cannula 4.0 36 11/01/16 16:30 98.1 92 19 132/79 Nasal Cannula 95.0 11/01/16 12:03 97.4 96 19 135/93 94 Nasal Cannula 2.0 11/01/16 10:15 95 18 Nasal Cannula 2.0 28 11/01/16 10:15 Nasal Cannula 2.0 28 11/01/16 10:15 96 Nasal Cannula 2.0 28 Intake and Output 11/01/16 11/02/16 19:00 07:00 Intake Total 480 ml 240 ml Balance 480 ml 240 ml Intake Oral 480 ml 240 ml # Voids 2 2 Objective General Appearance: WD/WN, no acute distress, drowsy but easilya rousable HEENT: normocephalic, mucous membranes moist Respiratory/Chest: chest wall non-tender, no respiratory distress, no accessory muscle use, few scattered bilateral expiratory wheezes Cardiovascular: normal peripheral pulses, normal rate, regular rhythm, no JVD Abdomen: normal bowel sounds, soft, non tender - obese, no organomegaly Extremities: no edema, pedal pulses normal Neurologic/Psychiatric: no motor/sensory deficits, drowsy but easily arousable Lymphatic: no neck adenopathy Musculoskeletal: normal muscle bulk Laboratory Tests 11/02/16 05:35: White Blood Count 14.4H, Red Blood Count 4.91, Hemoglobin 14.9, Hematocrit 51.7H , Mean Corpuscular Volume 105H, Mean Corpuscular Hemoglobin 30.2, Mean Corpuscular Hemoglobin Concent 28.7L, Red Cell Distribution Width 16.2H, Platelet Count 186, Mean Platelet Volume 9.7, Neutrophils (%) (Auto) , Lymphocytes (%) (Auto) , Monocytes (%) (Auto) , Eosinophils (%) (Auto) , Basophils (%) (Auto) , Neutrophils % (Manual) [Pending], Lymphocytes % (Manual) [Pending], Platelet Estimate [Pending], Platelet Morphology [Pending], Sodium Level 146H, Potassium Level 4.0, Chloride Level 98, Carbon Dioxide Level 38H, Anion Gap 10, Blood Urea Nitrogen 21, Creatinine 0.8, Estimat Glomerular Filtration Rate > 60, Glucose Level 112H, Calcium Level 8.8 Current Medications Medications (Trade) Dose Ordered Sig/Jud Route PRN Reason Start Time Stop Time Status Last Admin Dose Admin Albuterol/ Ipratropium (DuoNeb 0.5-3(2.5)mg/3ml) 3 ml Q4H PRN HHN dyspnea 10/31/16 18:00 11/05/16 17:59 11/01/16 23:50 Azithromycin/ Dextrose (Zithromax/D5W) 275 ml @ 275 mls/hr Q24HRS IV 10/31/16 23:00 11/06/16 23:59 11/01/16 23:00 Dextrose (Dextrose 50%) STAT PRN IV Hypoglycemia 10/31/16 18:00 11/30/16 17:59 Heparin Sodium (Porcine) (Heparin 5000 units/ml) 5,000 units EVERY 12 HOURS SUBQ 10/31/16 21:00 11/30/16 20:59 11/01/16 21:01 Insulin Aspart (NovoLOG) BEFORE MEALS AND HS SUBQ 10/31/16 21:00 11/30/16 20:59 11/01/16 21:01 Ketorolac Tromethamine (Toradol 30mg) 30 mg Q8H PRN IV Moderate Pain (Pain Scale 4-6) 11/01/16 18:00 11/06/16 17:59 Lorazepam (Ativan 2mg/ml 1ml) 0.5 mg Q4H PRN IV For Anxiety 10/31/16 18:00 11/07/16 17:59 Methylprednisolone Sodium Succinate (Solu-MEDROL) 60 mg Q12HR IV 11/01/16 21:00 12/01/16 20:59 11/01/16 20:59 Mirtazapine (Remeron) 45 mg BEDTIME ORAL 10/31/16 21:00 11/30/16 20:59 11/01/16 20:59 Morphine Sulfate (Morphine Sulfate) 2 mg Q4H PRN IVP Severe Pain (Pain Scale 7-10) 10/31/16 18:00 11/07/16 17:59 11/01/16 02:21 Nitroglycerin (Ntg) 0.4 mg Q5M X 3 DOSES PRN SL Prn Chest Pain 10/31/16 18:00 11/30/16 17:59 Ondansetron HCl (Zofran) 4 mg Q6H PRN IVP Nausea & Vomiting 10/31/16 18:45 11/30/16 18:44 Patient Own Medication (Patient's Own Med) 1 ea DAILY ORAL 11/01/16 14:00 12/01/16 13:59 11/01/16 14:17 Piperacillin Sod/ Tazobactam Sod/ Dextrose (Zosyn/D5W) 110 ml @ 27.5 mls/hr Q8H IVPB 10/31/16 19:00 11/07/16 18:59 11/02/16 03:05 Promethazine HCl/ Codeine (Phenergan with Codeine) 5 ml Q6H PRN ORAL cough 10/31/16 18:45 11/30/16 18:44 Temazepam (Restoril) 15 mg HSPRN PRN ORAL Insomnia 10/31/16 21:00 11/07/16 20:59 Theophylline 100 mg 100 mg DAILY ORAL 11/01/16 09:00 12/01/16 08:59 11/01/16 08:21 [facility] ([facility])[place] NP Nov 02, 2016 09:10
[2016-11-02 09:25] LABS: LYMPHOCYTES % (MANUAL) 9 % (20-45); NEUTROPHILS % (MANUAL) 88 % (45-75); TOTAL CELLS COUNTED 100
[2016-11-02 09:26] LABS: ANISOCYTOSIS 1+; BAND NEUTROPHILS % (MANUAL) 0 % (0-8); BASOPHILS % (MANUAL) 0 % (0-2); EOSINOPHILS % (MANUAL) 0 % (0-3); MACROCYTES 1+; PLATELET ESTIMATE ADEQUATE; PLATELET MORPHOLOGY NORMAL
[2016-11-02] MEDS: Theophylline ER 100mg ORAL SCH (09:27)
[2016-11-02] MEDS: Heparin 5000 units/ml inj SUBQ SCH ×2 (09:28→22:22)
[2016-11-02 12:10] VITALS: BP 140/56
[2016-11-02 15:56] VITALS: BP 124/77
--- NOTE | 2016-11-02 17:39 | Infectious Diseases Prog Note ---
Assessment/Plan Assessment/Plan ASSESSMENT: 51 y/o female with: // Asthma exacerbation / Pna - SCx, coccidiodes pending - CXR /: Slightly decreased but persistent right upper lobe infiltrate - h/o K.pneumoniae // HIV(+), on triumeq - CD4 257(32%), VL < 20 as per pt // Leukocytosis - improved, afebrile ( tapering steroids ) // Tobacco abuse // Negative RPR // Negative MRSA, VRE screens // Sulfa allergy // Full Code PLAN: - continue zosyn d# 4 / 5-7, azithromycin d# 3 / 5 - continue cART ( triumeq ) - ok for pt to take own med - taper steroids per pulm - f/u cultures - monitor CBC, temperatures - monitor BMP - monitor CXR - repeat AM - tobacco cessation Subjective Allergies: Coded Allergies: SULFA (SULFONAMIDE ANTIBIOTICS) (Verified Allergy, Unknown, 08/05/16) Subjective remains afebrile. WBC improved no new complaint Objective Vital Signs Last 24 Hour Vital Signs Date Time Temp Pulse Resp B/P Pulse Ox O2 Delivery O2 Flow Rate FiO2 11/02/16 15:56 97.9 90 20 124/77 93 Nasal Cannula 3.0 11/02/16 12:10 97.5 88 18 140/56 96 Nasal Cannula 3.0 11/02/16 08:56 97 Nasal Cannula 3.0 32 11/02/16 08:56 92 20 Nasal Cannula 3.0 32 11/02/16 08:56 Nasal Cannula 3.0 32 11/02/16 07:50 97.4 90 18 119/85 93 Nasal Cannula 3.0 11/02/16 04:00 97.2 90 18 129/77 92 Nasal Cannula 3.0 11/02/16 00:01 97 20 99 Nasal Cannula 4.0 36 11/02/16 00:00 36 11/02/16 00:00 97.2 90 19 120/65 83 Nasal Cannula 3.0 11/01/16 23:53 94 20 99 Nasal Cannula 4.0 98 11/01/16 23:52 94 20 Nasal Cannula 4.0 36 11/01/16 20:00 98.2 91 19 126/68 Nasal Cannula 2.0 11/01/16 19:47 Nasal Cannula 4.0 36 11/01/16 19:47 94 Nasal Cannula 4.0 36 11/01/16 19:46 89 20 Nasal Cannula 4.0 36 Height (Feet): 5 Height (Inches): 6.00 Weight (Pounds): 190 General Appearance: no acute distress Respiratory/Chest: no respiratory distress Cardiovascular: normal rate, regular rhythm Abdomen: normal bowel sounds, soft, non tender, non distended Laboratory Tests Test 11/02/16 05:35 White Blood Count 14.4 K/UL (4.8-10.8) H Red Blood Count 4.91 M/UL (4.20-5.40) Hemoglobin 14.9 G/DL (12.0-16.0) Hematocrit 51.7 % (37.0-47.0) H Mean Corpuscular Volume 105 FL (80-99) H Mean Corpuscular Hemoglobin 30.2 PG (27.0-31.0) Mean Corpuscular Hemoglobin Concent 28.7 G/DL (32.0-36.0) L Red Cell Distribution Width 16.2 % (11.6-14.8) H Platelet Count 186 K/UL (150-450) Mean Platelet Volume 9.7 FL (6.5-10.1) Neutrophils (%) (Auto) % (45.0-75.0) Lymphocytes (%) (Auto) % (20.0-45.0) Monocytes (%) (Auto) % (1.0-10.0) Eosinophils (%) (Auto) % (0.0-3.0) Basophils (%) (Auto) % (0.0-2.0) Differential Total Cells Counted 100 Neutrophils % (Manual) 88 % (45-75) H Lymphocytes % (Manual) 9 % (20-45) L Monocytes % (Manual) 3 % (1-10) Eosinophils % (Manual) 0 % (0-3) Basophils % (Manual) 0 % (0-2) Band Neutrophils 0 % (0-8) Platelet Estimate Adequate Platelet Morphology Normal Anisocytosis 1+ Macrocytosis 1+ Sodium Level 146 mEQ/L (135-145) H Potassium Level 4.0 mEQ/L (3.4-4.9) Chloride Level 98 mEQ/L (98-107) Carbon Dioxide Level 38 mEQ/L (20-30) H Anion Gap 10 (5-15) Blood Urea Nitrogen 21 mg/dL (7-23) Creatinine 0.8 mg/dL (0.5-0.9) Estimat Glomerular Filtration Rate > 60 mL/min (>60) Glucose Level 112 mg/dL (74-106) H Calcium Level 8.8 mg/dL (8.6-10.2) Current Medications Medications (Trade) Dose Ordered Sig/Jud Route PRN Reason Start Time Stop Time Status Last Admin Dose Admin Albuterol/ Ipratropium (DuoNeb 0.5-3(2.5)mg/3ml) 3 ml Q4H PRN HHN dyspnea 10/31/16 18:00 11/05/16 17:59 11/01/16 23:50 Azithromycin/ Dextrose (Zithromax/D5W) 275 ml @ 275 mls/hr Q24HRS IV 10/31/16 23:00 11/06/16 23:59 11/01/16 23:00 Dextrose (Dextrose 50%) STAT PRN IV Hypoglycemia 10/31/16 18:00 11/30/16 17:59 Heparin Sodium (Porcine) (Heparin 5000 units/ml) 5,000 units EVERY 12 HOURS SUBQ 10/31/16 21:00 11/30/16 20:59 11/02/16 09:28 Insulin Aspart (NovoLOG) BEFORE MEALS AND HS SUBQ 10/31/16 21:00 11/30/16 20:59 11/01/16 21:01 Ketorolac Tromethamine (Toradol 30mg) 30 mg Q8H PRN IV Moderate Pain (Pain Scale 4-6) 11/01/16 18:00 11/06/16 17:59 Lorazepam (Ativan 2mg/ml 1ml) 0.5 mg Q4H PRN IV For Anxiety 10/31/16 18:00 11/07/16 17:59 Methylprednisolone Sodium Succinate (Solu-MEDROL) 60 mg DAILY IV 11/03/16 09:00 12/03/16 08:59 Mirtazapine (Remeron) 45 mg BEDTIME ORAL 10/31/16 21:00 11/30/16 20:59 11/01/16 20:59 Morphine Sulfate (Morphine Sulfate) 1 mg Q4H PRN IVP Severe Pain (Pain Scale 7-10) 11/02/16 10:00 11/09/16 09:59 Nitroglycerin (Ntg) 0.4 mg Q5M X 3 DOSES PRN SL Prn Chest Pain 10/31/16 18:00 11/30/16 17:59 Ondansetron HCl (Zofran) 4 mg Q6H PRN IVP Nausea & Vomiting 10/31/16 18:45 11/30/16 18:44 Patient Own Medication (Patient's Own Med) 1 ea DAILY ORAL 11/01/16 14:00 12/01/16 13:59 11/02/16 09:28 Piperacillin Sod/ Tazobactam Sod/ Dextrose (Zosyn/D5W) 110 ml @ 27.5 mls/hr Q8H IVPB 10/31/16 19:00 11/07/16 18:59 11/02/16 12:05 Promethazine HCl/ Codeine (Phenergan with Codeine) 5 ml Q6H PRN ORAL cough 10/31/16 18:45 11/30/16 18:44 Temazepam (Restoril) 15 mg HSPRN PRN ORAL Insomnia 10/31/16 21:00 11/07/16 20:59 Theophylline 100 mg 100 mg DAILY ORAL 11/01/16 09:00 12/01/16 08:59 11/02/16 09:27 RAINA HENSLEYb 5, 2017 17:39
[2016-11-02 20:17] VITALS: BP 130/70
[2016-11-02] MEDS: Azithromycin 500 MG in D5W 275 ML IV SCH (23:02)
[2016-11-03] VITALS: BP 107/68
[2016-11-03] MEDS: DuoNeb 0.5-3(2.5)mg/3ml neb HHN PRN ×3 (02:29→19:36)
[2016-11-03] MEDS: Piperacillin/Tazobactam 3.375 GM in D5W 110 ML IVPB SCH ×3 (03:28→19:18)
[2016-11-03] MEDS: Morphine Sulfate 2mg/ml Inj IVP PRN (03:37)
[2016-11-03 04:00] VITALS: BP 118/80
[2016-11-03] MEDS: NovoLOG Insulin Flexpen SUBQ SCH ×4 (06:30→21:00)
[2016-11-03 07:35] LABS: BASOPHILS % (AUTO) 0.8 % (0.0-2.0); LYMPHOCYTES % (AUTO) 13.7 % (20.0-45.0); MEAN CORPUSCULAR HEMOGLOBIN 29.7 PG (27.0-31.0); MEAN CORPUSCULAR HGB CONC 28.5 G/DL (32.0-36.0); MEAN CORPUSCULAR VOLUME 105 FL (80-99); MEAN PLATELET VOLUME 9.9 FL (6.5-10.1); MONOCYTES % (AUTO) 6.4 % (1.0-10.0); NEUTROPHILS % (AUTO) 79.2 % (45.0-75.0); PLATELET COUNT 196 K/UL (150-450); RED BLOOD COUNT 5.35 M/UL (4.20-5.40); RED CELL DISTRIBUTION WIDTH 16.1 % (11.6-14.8); WHITE BLOOD COUNT 12.9 K/UL (4.8-10.8)
[2016-11-03 07:52] LABS: CALCIUM 8.8 mg/dL (8.6-10.2); CHLORIDE 101 mEQ/L (98-107); CREATININE 0.8 mg/dL (0.5-0.9); GLOMERULAR FILTRATION RATE > 60 mL/min (>60); HEMOLYSIS 2; POTASSIUM 3.7 mEQ/L (3.4-4.9); SODIUM 148 mEQ/L (135-145)
[2016-11-03 07:59] LABS: ANION GAP 6 (5-15)
[2016-11-03 08:00] VITALS: BP 143/86
[2016-11-03 08:08] LABS: CARBON DIOXIDE 41 mEQ/L (20-30)
[2016-11-03 08:47] LABS: CRYPTOCOCCAL ANTIGEN SERUM Negative (Negative); TOXOPLASMA IGG ANTIBODY <3.0 IU/mL (0.0-7.1)
[2016-11-03] MEDS ORDERED: Solu-MEDROL 125mg Inj IV SCH (09:00)
[2016-11-03] MEDS: Theophylline ER 100mg ORAL SCH (09:38)
[2016-11-03] MEDS: Heparin 5000 units/ml inj SUBQ SCH ×2 (09:39→21:01)
--- NOTE | 2016-11-03 10:21 | Diagnostic Imaging Report ---
Indication: SOB Technique: One view of the chest Comparison: 10/31/2016 Findings: Right suprahilar opacity persists, may be slightly fainter than on the prior exam. The heart remains enlarged. No new infiltrates Impression: Right upper lobe opacity, presumed consolidation, stable or slightly improved over 3 days. Recommend further followup chest radiographs to resolution to exclude underlying mass
[2016-11-03 12:00] VITALS: BP 130/82
--- NOTE | 2016-11-03 14:30 | Pulmonology Progress Note ---
Assessment/Plan Problems: (1) Pneumonia (2) HIV disease (3) Asthma Assessment/Plan continue antibiotics cxr from today reviewed taper steroids respiratory treatment Neuro evaluation of weakness Subjective ROS Limited/Unobtainable: No Interval Events: still short of breath, Constitutional: Reports: no symptoms HEENT: Repors: no symptoms Allergies: Coded Allergies: SULFA (SULFONAMIDE ANTIBIOTICS) (Verified Allergy, Unknown, 08/05/16) Objective Last 24 Hour Vital Signs Date Time Temp Pulse Resp B/P Pulse Ox O2 Delivery O2 Flow Rate FiO2 11/03/16 12:00 97.5 94 20 130/82 95 Nasal Cannula 3.0 11/03/16 08:00 98.1 89 18 143/86 92 Nasal Cannula 3.0 11/03/16 07:57 89 20 96 Nasal Cannula 3.0 32 11/03/16 07:56 82 20 90 Nasal Cannula 3.0 32 11/03/16 07:56 Nasal Cannula 3.0 32 11/03/16 07:56 90 Nasal Cannula 3.0 32 11/03/16 07:55 86 20 Nasal Cannula 3.0 32 11/03/16 04:07 97.5 11/03/16 04:00 97.3 90 20 118/80 91 3.0 11/03/16 02:31 94 20 99 Nasal Cannula 3.0 32 11/03/16 02:29 90 20 96 Nasal Cannula 3.0 32 11/03/16 00:00 97.5 87 18 107/68 97 Nasal Cannula 3.0 11/02/16 20:17 98.1 85 19 130/70 95 Nasal Cannula 3.0 11/02/16 19:00 96 Nasal Cannula 3.0 32 11/02/16 19:00 Nasal Cannula 3.0 32 11/02/16 19:00 93 16 Nasal Cannula 3.0 32 11/02/16 15:56 97.9 90 20 124/77 93 Nasal Cannula 3.0 Intake and Output 11/02/16 11/03/16 18:59 06:59 Intake Total 550 ml 240 ml Output Total 400 ml Balance 550 ml -160 ml Intake Oral 550 ml 240 ml Output Urine Total 400 ml # Voids 2 5 # Bowel Movements 1 General Appearance: WD/WN, no acute distress HEENT: atraumatic Respiratory/Chest: chest wall non-tender, lungs clear Cardiovascular: normal peripheral pulses, normal rate Abdomen: normal bowel sounds, soft, non tender Extremities: no cyanosis Skin: no lesions Laboratory Tests 11/03/16 07:05: White Blood Count 12.9H, Red Blood Count 5.35, Hemoglobin 15.9, Hematocrit 55.9H , Mean Corpuscular Volume 105H, Mean Corpuscular Hemoglobin 29.7, Mean Corpuscular Hemoglobin Concent 28.5L, Red Cell Distribution Width 16.1H, Platelet Count 196, Mean Platelet Volume 9.9, Neutrophils (%) (Auto) 79.2H, Lymphocytes (%) (Auto) 13.7L, Monocytes (%) (Auto) 6.4, Eosinophils (%) (Auto) 0.0, Basophils (%) (Auto) 0.8, Sodium Level 148H, Potassium Level 3.7, Chloride Level 101, Carbon Dioxide Level 41*H, Anion Gap 6, Blood Urea Nitrogen 20, Creatinine 0.8, Estimat Glomerular Filtration Rate > 60, Glucose Level 101, Calcium Level 8.8 Current Medications Medications (Trade) Dose Ordered Sig/Jud Route PRN Reason Start Time Stop Time Status Last Admin Dose Admin Albuterol/ Ipratropium (DuoNeb 0.5-3(2.5)mg/3ml) 3 ml Q4H PRN HHN dyspnea 10/31/16 18:00 11/05/16 17:59 11/03/16 07:54 Azithromycin/ Dextrose (Zithromax/D5W) 275 ml @ 275 mls/hr Q24HRS IV 10/31/16 23:00 11/06/16 23:59 11/02/16 23:02 Dextrose (Dextrose 50%) STAT PRN IV Hypoglycemia 10/31/16 18:00 11/30/16 17:59 Heparin Sodium (Porcine) (Heparin 5000 units/ml) 5,000 units EVERY 12 HOURS SUBQ 10/31/16 21:00 11/30/16 20:59 11/03/16 09:39 Insulin Aspart (NovoLOG) BEFORE MEALS AND HS SUBQ 10/31/16 21:00 11/30/16 20:59 11/01/16 21:01 Ketorolac Tromethamine (Toradol 30mg) 30 mg Q8H PRN IV Moderate Pain (Pain Scale 4-6) 11/01/16 18:00 11/06/16 17:59 Lorazepam (Ativan 2mg/ml 1ml) 0.5 mg Q4H PRN IV For Anxiety 10/31/16 18:00 11/07/16 17:59 Methylprednisolone Sodium Succinate (Solu-MEDROL) 60 mg DAILY IV 11/03/16 09:00 12/03/16 08:59 11/03/16 09:40 Mirtazapine (Remeron) 45 mg BEDTIME ORAL 10/31/16 21:00 11/30/16 20:59 11/02/16 22:21 Morphine Sulfate (Morphine Sulfate) 1 mg Q4H PRN IVP Severe Pain (Pain Scale 7-10) 11/02/16 10:00 11/09/16 09:59 11/03/16 03:37 Nitroglycerin (Ntg) 0.4 mg Q5M X 3 DOSES PRN SL Prn Chest Pain 10/31/16 18:00 11/30/16 17:59 Ondansetron HCl (Zofran) 4 mg Q6H PRN IVP Nausea & Vomiting 10/31/16 18:45 11/30/16 18:44 Patient Own Medication (Patient's Own Med) 1 ea DAILY ORAL 11/03/16 11:00 12/03/16 10:59 11/03/16 11:00 Piperacillin Sod/ Tazobactam Sod/ Dextrose (Zosyn/D5W) 110 ml @ 27.5 mls/hr Q8H IVPB 10/31/16 19:00 11/07/16 18:59 11/03/16 12:44 Promethazine HCl/ Codeine (Phenergan with Codeine) 5 ml Q6H PRN ORAL cough 10/31/16 18:45 11/30/16 18:44 11/03/16 02:42 Temazepam (Restoril) 15 mg HSPRN PRN ORAL Insomnia 10/31/16 21:00 11/07/16 20:59 Theophylline 100 mg 100 mg DAILY ORAL 11/01/16 09:00 12/01/16 08:59 11/03/16 09:38 AMBAR CHASE Nov 03, 2016 14:30
--- NOTE | 2016-11-03 15:38 | Infectious Diseases Prog Note ---
Assessment/Plan Assessment/Plan ASSESSMENT: 51 y/o female with: // Asthma exacerbation / Pna - SCx, coccidiodes pending - CXR 11/03: Right upper lobe opacity, presumed consolidation, stable or slightly improved over 3 days - h/o K.pneumoniae - negative: CrAg // HIV(+), on triumeq - CD4 257(32%), VL < 20 as per pt // Leukocytosis - improved, afebrile ( tapering steroids ) // Tobacco abuse // Negative RPR // Negative MRSA, VRE screens // Sulfa allergy // Full Code PLAN: - continue zosyn d# 5 / 7, azithromycin d# 4 / 5 - continue cART ( triumeq ) - ok for pt to take own med - taper steroids per pulm - f/u cultures - monitor CBC, temperatures - monitor BMP - monitor CXR - tobacco cessation Subjective Allergies: Coded Allergies: SULFA (SULFONAMIDE ANTIBIOTICS) (Verified Allergy, Unknown, 08/05/16) Subjective remains afebrile. WBC improved no new complaint solumedrol-->prednisone Objective Vital Signs Last 24 Hour Vital Signs Date Time Temp Pulse Resp B/P Pulse Ox O2 Delivery O2 Flow Rate FiO2 11/03/16 12:00 97.5 94 20 130/82 95 Nasal Cannula 3.0 11/03/16 08:00 98.1 89 18 143/86 92 Nasal Cannula 3.0 11/03/16 07:57 89 20 96 Nasal Cannula 3.0 32 11/03/16 07:56 82 20 90 Nasal Cannula 3.0 32 11/03/16 07:56 Nasal Cannula 3.0 32 11/03/16 07:56 90 Nasal Cannula 3.0 32 11/03/16 07:55 86 20 Nasal Cannula 3.0 32 11/03/16 04:07 97.5 11/03/16 04:00 97.3 90 20 118/80 91 3.0 11/03/16 02:31 94 20 99 Nasal Cannula 3.0 32 11/03/16 02:29 90 20 96 Nasal Cannula 3.0 32 11/03/16 00:00 97.5 87 18 107/68 97 Nasal Cannula 3.0 11/02/16 20:17 98.1 85 19 130/70 95 Nasal Cannula 3.0 11/02/16 19:00 96 Nasal Cannula 3.0 32 11/02/16 19:00 Nasal Cannula 3.0 32 11/02/16 19:00 93 16 Nasal Cannula 3.0 32 11/02/16 15:56 97.9 90 20 124/77 93 Nasal Cannula 3.0 Height (Feet): 5 Height (Inches): 6.00 Weight (Pounds): 190 General Appearance: no acute distress Respiratory/Chest: no respiratory distress Cardiovascular: normal rate, regular rhythm Abdomen: normal bowel sounds, soft, non tender, non distended Laboratory Tests Test 11/03/16 07:05 White Blood Count 12.9 K/UL (4.8-10.8) H Red Blood Count 5.35 M/UL (4.20-5.40) Hemoglobin 15.9 G/DL (12.0-16.0) Hematocrit 55.9 % (37.0-47.0) H Mean Corpuscular Volume 105 FL (80-99) H Mean Corpuscular Hemoglobin 29.7 PG (27.0-31.0) Mean Corpuscular Hemoglobin Concent 28.5 G/DL (32.0-36.0) L Red Cell Distribution Width 16.1 % (11.6-14.8) H Platelet Count 196 K/UL (150-450) Mean Platelet Volume 9.9 FL (6.5-10.1) Neutrophils (%) (Auto) 79.2 % (45.0-75.0) H Lymphocytes (%) (Auto) 13.7 % (20.0-45.0) L Monocytes (%) (Auto) 6.4 % (1.0-10.0) Eosinophils (%) (Auto) 0.0 % (0.0-3.0) Basophils (%) (Auto) 0.8 % (0.0-2.0) Sodium Level 148 mEQ/L (135-145) H Potassium Level 3.7 mEQ/L (3.4-4.9) Chloride Level 101 mEQ/L (98-107) Carbon Dioxide Level 41 mEQ/L (20-30) *H Anion Gap 6 (5-15) Blood Urea Nitrogen 20 mg/dL (7-23) Creatinine 0.8 mg/dL (0.5-0.9) Estimat Glomerular Filtration Rate > 60 mL/min (>60) Glucose Level 101 mg/dL (74-106) Calcium Level 8.8 mg/dL (8.6-10.2) Current Medications Medications (Trade) Dose Ordered Sig/Jud Route PRN Reason Start Time Stop Time Status Last Admin Dose Admin Albuterol/ Ipratropium (DuoNeb 0.5-3(2.5)mg/3ml) 3 ml Q4H PRN HHN dyspnea 10/31/16 18:00 11/05/16 17:59 11/03/16 07:54 Azithromycin/ Dextrose (Zithromax/D5W) 275 ml @ 275 mls/hr Q24HRS IV 10/31/16 23:00 11/06/16 23:59 11/02/16 23:02 Dextrose (Dextrose 50%) STAT PRN IV Hypoglycemia 10/31/16 18:00 11/30/16 17:59 Furosemide (Lasix) 20 mg DAILY IV 11/04/16 09:00 12/04/16 08:59 Heparin Sodium (Porcine) (Heparin 5000 units/ml) 5,000 units EVERY 12 HOURS SUBQ 10/31/16 21:00 11/30/16 20:59 11/03/16 09:39 Insulin Aspart (NovoLOG) BEFORE MEALS AND HS SUBQ 10/31/16 21:00 11/30/16 20:59 11/01/16 21:01 Lorazepam (Ativan 2mg/ml 1ml) 0.5 mg Q4H PRN IV For Anxiety 10/31/16 18:00 11/07/16 17:59 Mirtazapine (Remeron) 45 mg BEDTIME ORAL 10/31/16 21:00 11/30/16 20:59 11/02/16 22:21 Morphine Sulfate (Morphine Sulfate) 1 mg Q4H PRN IVP Severe Pain (Pain Scale 7-10) 11/02/16 10:00 11/09/16 09:59 11/03/16 03:37 Nitroglycerin (Ntg) 0.4 mg Q5M X 3 DOSES PRN SL Prn Chest Pain 10/31/16 18:00 11/30/16 17:59 Ondansetron HCl (Zofran) 4 mg Q6H PRN IVP Nausea & Vomiting 10/31/16 18:45 11/30/16 18:44 Patient Own Medication (Patient's Own Med) 1 ea DAILY ORAL 11/03/16 11:00 12/03/16 10:59 11/03/16 11:00 Piperacillin Sod/ Tazobactam Sod/ Dextrose (Zosyn/D5W) 110 ml @ 27.5 mls/hr Q8H IVPB 10/31/16 19:00 11/07/16 18:59 11/03/16 12:44 Prednisone (predniSONE) 40 mg DAILY ORAL 11/04/16 09:00 12/04/16 08:59 Promethazine HCl/ Codeine (Phenergan with Codeine) 5 ml Q6H PRN ORAL cough 10/31/16 18:45 11/30/16 18:44 11/03/16 02:42 Temazepam (Restoril) 15 mg HSPRN PRN ORAL Insomnia 10/31/16 21:00 11/07/16 20:59 Theophylline 100 mg 100 mg DAILY ORAL 11/01/16 09:00 12/01/16 08:59 11/03/16 09:38 RAINA HENSLEY Nov 03, 2016 15:38
[2016-11-03] MEDS ORDERED: D5 1/2NS 1000ml IV ONE (15:52)
[2016-11-03] MEDS ORDERED: NS 550ML IV ONE (15:52)
[2016-11-03 15:54] VITALS: BP 143/88
[2016-11-03 20:09] VITALS: BP 150/92
[2016-11-03] MEDS: Ziprasidone 20mg cap ORAL SCH (22:00)
[2016-11-03] MEDS: Azithromycin 500 MG in D5W 275 ML IV SCH (22:29)
[2016-11-04] VITALS (7 sets, daily range): BP systolic 122–150; BP diastolic 71–98
[2016-11-04] MEDS: Piperacillin/Tazobactam 3.375 GM in D5W 110 ML IVPB SCH ×3 (02:17→19:04)
[2016-11-04] MEDS: NovoLOG Insulin Flexpen SUBQ SCH ×4 (06:29→20:36)
[2016-11-04] MEDS: PredniSONE 20mg tab ORAL SCH ×2 (08:32→08:40)
[2016-11-04] MEDS: Heparin 5000 units/ml inj SUBQ SCH ×2 (08:32→20:44)
[2016-11-04] MEDS: Theophylline ER 100mg ORAL SCH ×2 (08:33→08:40)
--- NOTE | 2016-11-04 13:10 | Pulmonology Progress Note ---
Assessment/Plan Problems: (1) Pneumonia (2) HIV disease (3) Asthma (4) Cardiomegaly (5) Pulmonary edema Assessment/Plan lasix daily cxr in am continue antibiotics taper steroids slowly respiratory treatment Neuro evaluation of weakness Subjective ROS Limited/Unobtainable: No Interval Events: still sob, Allergies: Coded Allergies: SULFA (SULFONAMIDE ANTIBIOTICS) (Verified Allergy, Unknown, 08/05/16) Objective Last 24 Hour Vital Signs Date Time Temp Pulse Resp B/P Pulse Ox O2 Delivery O2 Flow Rate FiO2 11/04/16 12:01 97.1 68 19 144/97 98 Room Air 11/04/16 08:00 97.4 65 19 143/90 95 Nasal Cannula 2.0 11/04/16 07:25 Nasal Cannula 3.0 32 11/04/16 07:25 89 22 Nasal Cannula 3.0 32 11/04/16 07:25 94 Nasal Cannula 3.0 32 11/04/16 04:00 97.8 90 18 122/71 95 Nasal Cannula 3.0 11/04/16 00:00 97.9 93 18 136/76 96 Nasal Cannula 3.0 11/03/16 20:09 97.3 94 20 150/92 99 Nasal Cannula 3.0 11/03/16 19:46 88 22 95 Nasal Cannula 3.0 32 11/03/16 19:37 78 22 86 Room Air 11/03/16 19:36 78 22 Nasal Cannula 3.0 32 11/03/16 19:00 Nasal Cannula 3.0 32 11/03/16 19:00 91 Nasal Cannula 3.0 32 11/03/16 15:54 97.7 88 19 143/88 96 Nasal Cannula 3.0 Intake and Output 11/03/16 11/04/16 19:00 07:00 Intake Total 625.0 ml Balance 625.0 ml Intake Oral 240 ml IV Total 385.0 ml # Voids 2 5 # Bowel Movements 1 General Appearance: WD/WN HEENT: normocephalic Respiratory/Chest: chest wall non-tender, crackles/rales Cardiovascular: normal peripheral pulses, regular rhythm Abdomen: normal bowel sounds, soft, non tender Genitourinary: normal external genitalia Extremities: no cyanosis Skin: no rash Current Medications Medications (Trade) Dose Ordered Sig/Jud Route PRN Reason Start Time Stop Time Status Last Admin Dose Admin Albuterol/ Ipratropium (DuoNeb 0.5-3(2.5)mg/3ml) 3 ml Q4H PRN HHN dyspnea 10/31/16 18:00 11/05/16 17:59 11/03/16 19:36 Azithromycin/ Dextrose (Zithromax/D5W) 275 ml @ 275 mls/hr Q24HRS IV 10/31/16 23:00 11/06/16 23:59 11/03/16 22:29 Dextrose (Dextrose 50%) STAT PRN IV Hypoglycemia 10/31/16 18:00 11/30/16 17:59 Furosemide (Lasix) 20 mg DAILY IV 11/04/16 09:00 12/04/16 08:59 11/04/16 08:33 Heparin Sodium (Porcine) (Heparin 5000 units/ml) 5,000 units EVERY 12 HOURS SUBQ 10/31/16 21:00 11/30/16 20:59 11/04/16 08:32 Insulin Aspart (NovoLOG) BEFORE MEALS AND HS SUBQ 10/31/16 21:00 11/30/16 20:59 11/01/16 21:01 Lorazepam (Ativan 2mg/ml 1ml) 0.5 mg Q4H PRN IV For Anxiety 10/31/16 18:00 11/07/16 17:59 Mirtazapine (Remeron) 45 mg BEDTIME ORAL 10/31/16 21:00 11/30/16 20:59 11/03/16 21:00 Morphine Sulfate (Morphine Sulfate) 1 mg Q4H PRN IVP Severe Pain (Pain Scale 7-10) 11/02/16 10:00 11/09/16 09:59 11/03/16 03:37 Nitroglycerin (Ntg) 0.4 mg Q5M X 3 DOSES PRN SL Prn Chest Pain 10/31/16 18:00 11/30/16 17:59 Ondansetron HCl (Zofran) 4 mg Q6H PRN IVP Nausea & Vomiting 10/31/16 18:45 11/30/16 18:44 Patient Own Medication (Patient's Own Med) 1 ea DAILY ORAL 11/03/16 11:00 12/03/16 10:59 11/03/16 11:00 Piperacillin Sod/ Tazobactam Sod/ Dextrose (Zosyn/D5W) 110 ml @ 27.5 mls/hr Q8H IVPB 10/31/16 19:00 11/07/16 18:59 11/04/16 11:43 Prednisone (predniSONE) 40 mg DAILY ORAL 11/04/16 09:00 12/04/16 08:59 Promethazine HCl/ Codeine (Phenergan with Codeine) 5 ml Q6H PRN ORAL cough 10/31/16 18:45 11/30/16 18:44 11/03/16 02:42 Temazepam (Restoril) 15 mg HSPRN PRN ORAL Insomnia 10/31/16 21:00 11/07/16 20:59 11/03/16 22:29 Theophylline 100 mg 100 mg DAILY ORAL 11/01/16 09:00 12/01/16 08:59 11/03/16 09:38 Ziprasidone (Geodon) 80 mg QHS ORAL 11/03/16 22:00 12/03/16 21:59 AMBAR CHASE Nov 04, 2016 13:10
--- NOTE | 2016-11-04 15:54 | Infectious Diseases Prog Note ---
Assessment/Plan Assessment/Plan ASSESSMENT: 51 y/o female with: // Asthma exacerbation / Pna - SCx not sent, coccidiodes pending - CXR 11/03: Right upper lobe opacity, presumed consolidation, stable or slightly improved over 3 days - h/o K.pneumoniae - negative: CrAg // HIV(+), on triumeq - CD4 257(32%), VL < 20 as per pt // Leukocytosis - improved, afebrile ( tapering steroids ) // Tobacco abuse // Negative RPR // Negative MRSA, VRE screens // Sulfa allergy // Full Code PLAN: - continue zosyn d# 6 / . Finishes azithromycin d# / today - continue cART ( triumeq ) - ok for pt to take own med - taper steroids per pulm - f/u cultures - monitor CBC, temperatures - monitor BMP - monitor CXR - tobacco cessation Subjective Allergies: Coded Allergies: SULFA (SULFONAMIDE ANTIBIOTICS) (Verified Allergy, Unknown, 08/05/16) Subjective remains afebrile. WBC improved no new complaint Objective Vital Signs Last 24 Hour Vital Signs Date Time Temp Pulse Resp B/P Pulse Ox O2 Delivery O2 Flow Rate FiO2 11/04/16 12:01 97.1 68 19 144/97 98 Room Air 11/04/16 08:00 97.4 65 19 143/90 95 Nasal Cannula 2.0 11/04/16 07:25 Nasal Cannula 3.0 32 11/04/16 07:25 89 22 Nasal Cannula 3.0 32 11/04/16 07:25 94 Nasal Cannula 3.0 32 11/04/16 04:00 97.8 90 18 122/71 95 Nasal Cannula 3.0 11/04/16 00:00 97.9 93 18 136/76 96 Nasal Cannula 3.0 11/03/16 20:09 97.3 94 20 150/92 99 Nasal Cannula 3.0 11/03/16 19:46 88 22 95 Nasal Cannula 3.0 32 11/03/16 19:37 78 22 86 Room Air 11/03/16 19:36 78 22 Nasal Cannula 3.0 32 11/03/16 19:00 Nasal Cannula 3.0 32 11/03/16 19:00 91 Nasal Cannula 3.0 32 11/03/16 15:54 97.7 88 19 143/88 96 Nasal Cannula 3.0 Height (Feet): 5 Height (Inches): 6.00 Weight (Pounds): 190 General Appearance: no acute distress Respiratory/Chest: no respiratory distress Cardiovascular: normal rate, regular rhythm Abdomen: normal bowel sounds, soft, non tender, non distended Current Medications Medications (Trade) Dose Ordered Sig/Jud Route PRN Reason Start Time Stop Time Status Last Admin Dose Admin Albuterol/ Ipratropium (DuoNeb 0.5-3(2.5)mg/3ml) 3 ml Q4H PRN HHN dyspnea 10/31/16 18:00 11/05/16 17:59 11/03/16 19:36 Azithromycin/ Dextrose (Zithromax/D5W) 275 ml @ 275 mls/hr Q24HRS IV 10/31/16 23:00 11/06/16 23:59 11/03/16 22:29 Dextrose (Dextrose 50%) STAT PRN IV Hypoglycemia 10/31/16 18:00 11/30/16 17:59 Furosemide (Lasix) 20 mg DAILY IV 11/04/16 09:00 12/04/16 08:59 11/04/16 08:33 Heparin Sodium (Porcine) (Heparin 5000 units/ml) 5,000 units EVERY 12 HOURS SUBQ 10/31/16 21:00 11/30/16 20:59 11/04/16 08:32 Insulin Aspart (NovoLOG) BEFORE MEALS AND HS SUBQ 10/31/16 21:00 11/30/16 20:59 11/01/16 21:01 Lorazepam (Ativan 2mg/ml 1ml) 0.5 mg Q4H PRN IV For Anxiety 10/31/16 18:00 11/07/16 17:59 Mirtazapine (Remeron) 45 mg BEDTIME ORAL 10/31/16 21:00 11/30/16 20:59 11/03/16 21:00 Morphine Sulfate (Morphine Sulfate) 1 mg Q4H PRN IVP Severe Pain (Pain Scale 7-10) 11/02/16 10:00 11/09/16 09:59 11/03/16 03:37 Nitroglycerin (Ntg) 0.4 mg Q5M X 3 DOSES PRN SL Prn Chest Pain 10/31/16 18:00 11/30/16 17:59 Ondansetron HCl (Zofran) 4 mg Q6H PRN IVP Nausea & Vomiting 10/31/16 18:45 11/30/16 18:44 Patient Own Medication (Patient's Own Med) 1 ea DAILY ORAL 11/03/16 11:00 12/03/16 10:59 11/03/16 11:00 Piperacillin Sod/ Tazobactam Sod/ Dextrose (Zosyn/D5W) 110 ml @ 27.5 mls/hr Q8H IVPB 10/31/16 19:00 11/07/16 18:59 11/04/16 11:43 Prednisone (predniSONE) 40 mg DAILY ORAL 11/04/16 09:00 12/04/16 08:59 Promethazine HCl/ Codeine (Phenergan with Codeine) 5 ml Q6H PRN ORAL cough 10/31/16 18:45 11/30/16 18:44 11/03/16 02:42 Temazepam (Restoril) 15 mg HSPRN PRN ORAL Insomnia 10/31/16 21:00 11/07/16 20:59 11/03/16 22:29 Theophylline 100 mg 100 mg DAILY ORAL 11/01/16 09:00 12/01/16 08:59 11/03/16 09:38 Ziprasidone (Geodon) 80 mg QHS ORAL 11/03/16 22:00 12/03/16 21:59 RAINA HENSLEY Nov 04, 2016 15:54
[2016-11-04] MEDS: DuoNeb 0.5-3(2.5)mg/3ml neb HHN PRN (17:47)
[2016-11-04 18:59] LABS: MEAN CORPUSCULAR HEMOGLOBIN 30.6 PG (27.0-31.0); MEAN CORPUSCULAR HGB CONC 28.9 G/DL (32.0-36.0); MEAN CORPUSCULAR VOLUME 106 FL (80-99); MEAN PLATELET VOLUME 10.1 FL (6.5-10.1); PLATELET COUNT 165 K/UL (150-450); RED BLOOD COUNT 5.26 M/UL (4.20-5.40); WHITE BLOOD COUNT 13.8 K/UL (4.8-10.8)
[2016-11-04 19:10] LABS: ALANINE AMINOTRANSFERASE 33 U/L (3-33); ALBUMIN/GLOBULIN RATIO 1.4 (1.0-2.7); ASPARTATE AMINO TRANSFERASE 26 U/L (5-40); CALCIUM 9.1 mg/dL (8.6-10.2); CHLORIDE 98 mEQ/L (98-107); CREATININE 0.6 mg/dL (0.5-0.9); GLOMERULAR FILTRATION RATE > 60 mL/min (>60); HEMOLYSIS 0; POTASSIUM 3.6 mEQ/L (3.4-4.9); SODIUM 149 mEQ/L (135-145); TOTAL PROTEIN 6.1 g/dL (6.6-8.7)
[2016-11-04 19:15] LABS: ANION GAP 7 (5-15)
[2016-11-04 19:19] LABS: CARBON DIOXIDE 44 mEQ/L (20-30)
[2016-11-04 20:10] LABS: BAND NEUTROPHILS % (MANUAL) 1 % (0-8); LYMPHOCYTES % (MANUAL) 8 % (20-45); NEUTROPHILS % (MANUAL) 87 % (45-75); TOTAL CELLS COUNTED 100
[2016-11-04 20:11] LABS: ANISOCYTOSIS 1+; BASOPHILS % (MANUAL) 0 % (0-2); EOSINOPHILS % (MANUAL) 0 % (0-3); MACROCYTES 2+; PLATELET ESTIMATE ADEQUATE; PLATELET MORPHOLOGY NORMAL; POLYCHROMASIA 1+
[2016-11-04] MEDS: Ziprasidone 20mg cap ORAL SCH (20:43)
[2016-11-04] MEDS: Azithromycin 500 MG in D5W 275 ML IV SCH (23:15)
[2016-11-05] VITALS: BP 136/79
[2016-11-05] MEDS: Piperacillin/Tazobactam 3.375 GM in D5W 110 ML IVPB SCH ×3 (02:30→19:36)
[2016-11-05 04:00] VITALS: BP 124/75
[2016-11-05] MEDS: NovoLOG Insulin Flexpen SUBQ SCH ×4 (06:27→21:36)
[2016-11-05 07:03] LABS: BASOPHILS % (AUTO) 0.4 % (0.0-2.0); EOSINOPHILS % (AUTO) 0.3 % (0.0-3.0); LYMPHOCYTES % (AUTO) 13.7 % (20.0-45.0); MEAN CORPUSCULAR HEMOGLOBIN 31.4 PG (27.0-31.0); MEAN CORPUSCULAR VOLUME 105 FL (80-99); MEAN PLATELET VOLUME 10.4 FL (6.5-10.1); MONOCYTES % (AUTO) 6.1 % (1.0-10.0); NEUTROPHILS % (AUTO) 79.5 % (45.0-75.0); PLATELET COUNT 158 K/UL (150-450); RED BLOOD COUNT 4.93 M/UL (4.20-5.40); RED CELL DISTRIBUTION WIDTH 16.3 % (11.6-14.8); WHITE BLOOD COUNT 10.8 K/UL (4.8-10.8)
[2016-11-05 07:22] LABS: ALANINE AMINOTRANSFERASE 28 U/L (3-33); ALBUMIN/GLOBULIN RATIO 1.2 (1.0-2.7); ASPARTATE AMINO TRANSFERASE 23 U/L (5-40); CALCIUM 8.9 mg/dL (8.6-10.2); CHLORIDE 100 mEQ/L (98-107); CREATININE 0.6 mg/dL (0.5-0.9); GLOMERULAR FILTRATION RATE > 60 mL/min (>60); HEMOLYSIS 10; POTASSIUM 3.6 mEQ/L (3.4-4.9); SODIUM 152 mEQ/L (135-145); TOTAL PROTEIN 5.8 g/dL (6.6-8.7)
[2016-11-05 07:30] LABS: ANION GAP 10 (5-15)
[2016-11-05 07:52] LABS: CARBON DIOXIDE 42 mEQ/L (20-30)
[2016-11-05 08:00] VITALS: BP 143/112
[2016-11-05] MEDS: Theophylline ER 100mg ORAL SCH (08:25)
[2016-11-05] MEDS: Heparin 5000 units/ml inj SUBQ SCH ×2 (08:26→21:34)
[2016-11-05] MEDS: PredniSONE 20mg tab ORAL SCH (08:26)
[2016-11-05 12:00] VITALS: BP 130/79
--- NOTE | 2016-11-05 12:51 | Neurology Progress Note ---
Interim History Interim History ROS Limited/Unobtainable: No Objective Physical Exam Last Vital Signs Date Time Temp Pulse Resp B/P Pulse Ox O2 Delivery O2 Flow Rate FiO2 11/05/16 12:00 99.1 96 18 130/79 92 Nasal Cannula 2.0 11/05/16 08:09 32 Laboratory Tests Test 11/04/16 18:30 11/05/16 05:35 White Blood Count 13.8 K/UL (4.8-10.8) H 10.8 K/UL (4.8-10.8) Red Blood Count 5.26 M/UL (4.20-5.40) 4.93 M/UL (4.20-5.40) Hemoglobin 16.1 G/DL (12.0-16.0) H 15.5 G/DL (12.0-16.0) Hematocrit 55.7 % (37.0-47.0) H 51.6 % (37.0-47.0) H Mean Corpuscular Volume 106 FL (80-99) H 105 FL (80-99) H Mean Corpuscular Hemoglobin 30.6 PG (27.0-31.0) 31.4 PG (27.0-31.0) H Mean Corpuscular Hemoglobin Concent 28.9 G/DL (32.0-36.0) L 30.0 G/DL (32.0-36.0) L Red Cell Distribution Width 16.0 % (11.6-14.8) H 16.3 % (11.6-14.8) H Platelet Count 165 K/UL (150-450) 158 K/UL (150-450) Mean Platelet Volume 10.1 FL (6.5-10.1) 10.4 FL (6.5-10.1) H Neutrophils (%) (Auto) % (45.0-75.0) 79.5 % (45.0-75.0) H Lymphocytes (%) (Auto) % (20.0-45.0) 13.7 % (20.0-45.0) L Monocytes (%) (Auto) % (1.0-10.0) 6.1 % (1.0-10.0) Eosinophils (%) (Auto) % (0.0-3.0) 0.3 % (0.0-3.0) Basophils (%) (Auto) % (0.0-2.0) 0.4 % (0.0-2.0) Differential Total Cells Counted 100 Neutrophils % (Manual) 87 % (45-75) H Lymphocytes % (Manual) 8 % (20-45) L Monocytes % (Manual) 4 % (1-10) Eosinophils % (Manual) 0 % (0-3) Basophils % (Manual) 0 % (0-2) Band Neutrophils 1 % (0-8) Platelet Estimate Adequate Platelet Morphology Normal Polychromasia 1+ Anisocytosis 1+ Macrocytosis 2+ Sodium Level 149 mEQ/L (135-145) H 152 mEQ/L (135-145) H Potassium Level 3.6 mEQ/L (3.4-4.9) 3.6 mEQ/L (3.4-4.9) Chloride Level 98 mEQ/L (98-107) 100 mEQ/L (98-107) Carbon Dioxide Level 44 mEQ/L (20-30) *H 42 mEQ/L (20-30) *H Anion Gap 7 (5-15) 10 (5-15) Blood Urea Nitrogen 13 mg/dL (7-23) 12 mg/dL (7-23) Creatinine 0.6 mg/dL (0.5-0.9) 0.6 mg/dL (0.5-0.9) Estimat Glomerular Filtration Rate > 60 mL/min (>60) > 60 mL/min (>60) Glucose Level 97 mg/dL (74-106) 92 mg/dL (74-106) Calcium Level 9.1 mg/dL (8.6-10.2) 8.9 mg/dL (8.6-10.2) Total Bilirubin 0.4 mg/dL (0.0-1.2) 0.4 mg/dL (0.0-1.2) Aspartate Amino Transf (AST/SGOT) 26 U/L (5-40) 23 U/L (5-40) Alanine Aminotransferase (ALT/SGPT) 33 U/L (3-33) 28 U/L (3-33) Alkaline Phosphatase 42 U/L (35-104) 40 U/L (35-104) Pro-B-Type Natriuretic Peptide 2492 pg/mL (0-125) H Total Protein 6.1 g/dL (6.6-8.7) L 5.8 g/dL (6.6-8.7) L Albumin 3.6 g/dL (3.5-5.2) 3.2 g/dL (3.5-5.2) L Globulin 2.5 g/dL 2.6 g/dL Albumin/Globulin Ratio 1.4 (1.0-2.7) 1.2 (1.0-2.7) Carcinoembryonic Antigen 4.1 ng/mL H Impression/Recommendations Problems: (1) Delirium due to another medical condition, persistent, hyperactive (2) h/o chronic psych d/o (3) Hypernatremia (4) HIV disease (5) Pneumonia (6) COPD (chronic obstructive pulmonary disease) Status: deteriorating Recommendations d/w sister d/w REAGAN PEDERSEN Nov 05, 2016 12:51
--- NOTE | 2016-11-05 14:03 | Diagnostic Imaging Report ---
Indications: Altered mental status Technique: Continuous helical CT imaging of the brain was performed with automatic exposure control on a Siemens sensation [address] scanner. Axial and coronal images were reconstructed at 5 mm slice thickness and interval. CTDI volume(s): 70 mGy Total DLP: 1464 mGy-cm Findings: Comparison: None. Motion artifact degrades all images.. No evidence of mass or hemorrhage, other attenuation abnormality, mass effect, midline shift, hydrocephalus or increased intracranial pressure. Bone window images demonstrate defect in medial wall of left orbit, are otherwise unremarkable. Visualized paranasal sinuses and mastoid air cells are clear. IMPRESSION: No evidence of acute intracranial pathology, limited as described. Suboptimal but potentially significant abnormalities including but not limited to hemorrhage, edema, may be missed. Repeat imaging suggested once patient more cooperative.. Old fracture left lamina papyracea The CT scanner at [facility] is accredited by the [place] [employer] and the scans are performed using protocols designed to limit radiation exposure to as low as reasonably achievable to attain images of sufficient resolution adequate for diagnostic evaluation.
[2016-11-05] MEDS: DuoNeb 0.5-3(2.5)mg/3ml neb HHN PRN (14:05)
[2016-11-05 16:06] VITALS: BP 136/95
[2016-11-05] MEDS: DuoNeb 0.5-3(2.5)mg/3ml neb HHN SCH ×3 (16:15→23:13)
--- NOTE | 2016-11-05 17:54 | Pulmonology Progress Note ---
Assessment/Plan Problems: (1) Pneumonia (2) HIV disease (3) Asthma (4) Cardiomegaly (5) Pulmonary edema Assessment/Plan lasix daily cxr in am continue antibiotics taper steroids slowly respiratory treatment Neuro evaluation of weakness Subjective ROS Limited/Unobtainable: No Respiratory: Reports: dyspnea at rest, dyspnea on exertion, productive cough, shortness of breath, sputum, wheezing Allergies: Coded Allergies: SULFA (SULFONAMIDE ANTIBIOTICS) (Verified Allergy, Unknown, 08/05/16) Objective Last 24 Hour Vital Signs Date Time Temp Pulse Resp B/P Pulse Ox O2 Delivery O2 Flow Rate FiO2 11/05/16 16:26 94 18 97 Nasal Cannula 2.0 28 11/05/16 16:25 97 20 94 Nasal Cannula 2.0 28 11/05/16 16:06 97.2 105 20 136/95 97 Nasal Cannula 3.0 11/05/16 14:02 91 18 98 Nasal Cannula 2.0 28 11/05/16 14:02 102 22 98 Nasal Cannula 2.0 28 11/05/16 12:00 99.1 96 18 130/79 92 Nasal Cannula 2.0 11/05/16 08:09 Nasal Cannula 3.0 32 11/05/16 08:09 94 Nasal Cannula 3.0 32 11/05/16 08:09 92 18 Nasal Cannula 3.0 32 11/05/16 08:00 97.4 100 16 143/112 96 Nasal Cannula 2.0 11/05/16 04:00 97.5 96 24 124/75 95 Nasal Cannula 2.0 11/05/16 00:00 97.7 105 22 136/79 94 Nasal Cannula 2.0 11/04/16 20:32 97.2 67 20 144/90 95 Nasal Cannula 2.0 11/04/16 20:00 98.1 53 17 150/98 92 Nasal Cannula 2.0 11/04/16 19:30 93 Nasal Cannula 3.0 32 11/04/16 19:30 Nasal Cannula 3.0 32 11/04/16 19:30 90 20 Nasal Cannula 3.0 32 11/04/16 17:57 100 22 98 Nasal Cannula 3.0 32 Intake and Output 11/04/16 11/05/16 19:00 07:00 Intake Total 720 ml 806.25 ml Balance 720 ml 806.25 ml Intake Oral 720 ml 600 ml IV Total 206.25 ml # Voids 3 5 # Bowel Movements 1 General Appearance: no acute distress HEENT: normocephalic, atraumatic, PERRL Respiratory/Chest: chest wall non-tender, decreased breath sounds, accessory muscle use, crackles/rales, rhonchi, expiratory wheezing Breasts: no masses Cardiovascular: normal peripheral pulses, normal rate, regular rhythm, no JVD Abdomen: normal bowel sounds, soft, non tender, no organomegaly Genitourinary: normal external genitalia Extremities: no cyanosis Skin: rash, lesions 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, no motor/sensory deficits Laboratory Tests 11/04/16 18:30: White Blood Count 13.8H, Red Blood Count 5.26, Hemoglobin 16.1H, Hematocrit 55.7H, Mean Corpuscular Volume 106H, Mean Corpuscular Hemoglobin 30.6, Mean Corpuscular Hemoglobin Concent 28.9L, Red Cell Distribution Width 16.0H, Platelet Count 165, Mean Platelet Volume 10.1, Neutrophils (%) (Auto) , Lymphocytes (%) (Auto) , Monocytes (%) (Auto) , Eosinophils (%) (Auto) , Basophils (%) (Auto) , Differential Total Cells Counted 100, Neutrophils % ( Manual) 87H, Lymphocytes % (Manual) 8L, Monocytes % (Manual) 4, Eosinophils % ( Manual) 0, Basophils % (Manual) 0, Band Neutrophils 1, Platelet Estimate Adequate, Platelet Morphology Normal, Polychromasia 1+, Anisocytosis 1+, Macrocytosis 2+, Sodium Level 149H, Potassium Level 3.6, Chloride Level 98, Carbon Dioxide Level 44*H, Anion Gap 7, Blood Urea Nitrogen 13, Creatinine 0.6, Estimat Glomerular Filtration Rate > 60, Glucose Level 97, Calcium Level 9.1, Total Bilirubin 0.4, Aspartate Amino Transf (AST/SGOT) 26, Alanine Aminotransferase (ALT/SGPT) 33, Alkaline Phosphatase 42, Pro-B-Type Natriuretic Peptide 2492H, Total Protein 6.1L, Albumin 3.6, Globulin 2.5, Albumin/Globulin Ratio 1.4, Carcinoembryonic Antigen 4.1H 11/05/16 05:35: White Blood Count 10.8, Red Blood Count 4.93, Hemoglobin 15.5, Hematocrit 51.6H , Mean Corpuscular Volume 105H, Mean Corpuscular Hemoglobin 31.4H, Mean Corpuscular Hemoglobin Concent 30.0L, Red Cell Distribution Width 16.3H, Platelet Count 158, Mean Platelet Volume 10.4H, Neutrophils (%) (Auto) 79.5H, Lymphocytes (%) (Auto) 13.7L, Monocytes (%) (Auto) 6.1, Eosinophils (%) (Auto) 0.3, Basophils (%) (Auto) 0.4, Sodium Level 152H, Potassium Level 3.6, Chloride Level 100, Carbon Dioxide Level 42*H, Anion Gap 10, Blood Urea Nitrogen 12, Creatinine 0.6, Estimat Glomerular Filtration Rate > 60, Glucose Level 92, Calcium Level 8.9, Total Bilirubin 0.4, Aspartate Amino Transf (AST/SGOT) 23, Alanine Aminotransferase (ALT/SGPT) 28, Alkaline Phosphatase 40, Total Protein 5.8L, Albumin 3.2L, Globulin 2.6, Albumin/Globulin Ratio 1.2 Current Medications Medications (Trade) Dose Ordered Sig/Jud Route PRN Reason Start Time Stop Time Status Last Admin Dose Admin Albuterol/ Ipratropium (DuoNeb 0.5-3(2.5)mg/3ml) 3 ml Q4H PRN HHN dyspnea 10/31/16 18:00 11/05/16 17:59 11/05/16 14:05 Albuterol/ Ipratropium (DuoNeb 0.5-3(2.5)mg/3ml) 3 ml Q4HRT HHN 11/05/16 15:00 11/10/16 14:59 11/05/16 16:15 Dextrose (Dextrose 50%) STAT PRN IV Hypoglycemia 10/31/16 18:00 11/30/16 17:59 Furosemide (Lasix) 20 mg DAILY IV 11/04/16 09:00 12/04/16 08:59 11/05/16 08:07 Heparin Sodium (Porcine) (Heparin 5000 units/ml) 5,000 units EVERY 12 HOURS SUBQ 10/31/16 21:00 11/30/16 20:59 11/05/16 08:26 Insulin Aspart (NovoLOG) BEFORE MEALS AND HS SUBQ 10/31/16 21:00 11/30/16 20:59 11/01/16 21:01 Lorazepam (Ativan 2mg/ml 1ml) 0.5 mg Q4H PRN IV For Anxiety 10/31/16 18:00 11/07/16 17:59 11/05/16 16:10 Mirtazapine (Remeron) 45 mg BEDTIME ORAL 10/31/16 21:00 11/30/16 20:59 11/04/16 20:33 Morphine Sulfate (Morphine Sulfate) 1 mg Q4H PRN IVP Severe Pain (Pain Scale 7-10) 11/02/16 10:00 11/09/16 09:59 11/03/16 03:37 Nitroglycerin (Ntg) 0.4 mg Q5M X 3 DOSES PRN SL Prn Chest Pain 10/31/16 18:00 11/30/16 17:59 Ondansetron HCl (Zofran) 4 mg Q6H PRN IVP Nausea & Vomiting 10/31/16 18:45 11/30/16 18:44 Patient Own Medication (Patient's Own Med) 1 ea DAILY ORAL 11/03/16 11:00 12/03/16 10:59 11/05/16 08:25 Piperacillin Sod/ Tazobactam Sod/ Dextrose (Zosyn/D5W) 110 ml @ 27.5 mls/hr Q8H IVPB 10/31/16 19:00 11/05/16 23:59 11/05/16 11:32 Prednisone (predniSONE) 40 mg DAILY ORAL 11/04/16 09:00 12/04/16 08:59 11/05/16 08:26 Promethazine HCl/ Codeine (Phenergan with Codeine) 5 ml Q6H PRN ORAL cough 10/31/16 18:45 11/30/16 18:44 11/03/16 02:42 Temazepam (Restoril) 15 mg HSPRN PRN ORAL Insomnia 10/31/16 21:00 11/07/16 20:59 11/05/16 01:26 Theophylline (Alli-Dur) 100 mg DAILY ORAL 11/01/16 09:00 12/01/16 08:59 11/05/16 08:25 Ziprasidone (Geodon) 80 mg QHS ORAL 11/03/16 22:00 12/03/16 21:59 11/04/16 20:43 AMBAR CHASE Nov 05, 2016 17:54
--- NOTE | 2016-11-05 18:04 | Infectious Diseases Prog Note ---
Assessment/Plan Assessment/Plan ASSESSMENT: 51 y/o female with: // Asthma exacerbation / Pna - SCx not sent, coccidiodes pending - CXR 11/03: Right upper lobe opacity, presumed consolidation, stable or slightly improved over 3 days - h/o K.pneumoniae - negative: CrAg // HIV(+), on triumeq - CD4 257(32%), VL < 20 as per pt // Leukocytosis - resolved, afebrile ( tapering steroids ) // Tobacco abuse // Negative RPR // Negative MRSA, VRE screens // Sulfa allergy // Full Code PLAN: - finishes zosyn d# today. Monitor pt off of ABX ( 11/04 SP azithromycin d# ) - continue cART ( triumeq ) - ok for pt to take own med - f/u coccidioides - taper steroids per pulm - monitor CBC, temperatures, re-culture if acute change - monitor BMP - monitor CXR - tobacco cessation Subjective Allergies: Coded Allergies: SULFA (SULFONAMIDE ANTIBIOTICS) (Verified Allergy, Unknown, 08/05/16) Subjective remains afebrile. WBC resolved no new complaint Objective Vital Signs Last 24 Hour Vital Signs Date Time Temp Pulse Resp B/P Pulse Ox O2 Delivery O2 Flow Rate FiO2 11/05/16 16:26 94 18 97 Nasal Cannula 2.0 28 11/05/16 16:25 97 20 94 Nasal Cannula 2.0 28 11/05/16 16:06 97.2 105 20 136/95 97 Nasal Cannula 3.0 11/05/16 14:02 91 18 98 Nasal Cannula 2.0 28 11/05/16 14:02 102 22 98 Nasal Cannula 2.0 28 11/05/16 12:00 99.1 96 18 130/79 92 Nasal Cannula 2.0 11/05/16 08:09 Nasal Cannula 3.0 32 11/05/16 08:09 94 Nasal Cannula 3.0 32 11/05/16 08:09 92 18 Nasal Cannula 3.0 32 11/05/16 08:00 97.4 100 16 143/112 96 Nasal Cannula 2.0 11/05/16 04:00 97.5 96 24 124/75 95 Nasal Cannula 2.0 11/05/16 00:00 97.7 105 22 136/79 94 Nasal Cannula 2.0 11/04/16 20:32 97.2 67 20 144/90 95 Nasal Cannula 2.0 11/04/16 20:00 98.1 53 17 150/98 92 Nasal Cannula 2.0 11/04/16 19:30 93 Nasal Cannula 3.0 32 11/04/16 19:30 Nasal Cannula 3.0 32 11/04/16 19:30 90 20 Nasal Cannula 3.0 32 Height (Feet): 5 Height (Inches): 6.00 Weight (Pounds): 190 General Appearance: no acute distress Respiratory/Chest: no respiratory distress Cardiovascular: normal rate, regular rhythm Abdomen: normal bowel sounds, soft, non tender, non distended Laboratory Tests Test 11/04/16 18:30 11/05/16 05:35 White Blood Count 13.8 K/UL (4.8-10.8) H 10.8 K/UL (4.8-10.8) Red Blood Count 5.26 M/UL (4.20-5.40) 4.93 M/UL (4.20-5.40) Hemoglobin 16.1 G/DL (12.0-16.0) H 15.5 G/DL (12.0-16.0) Hematocrit 55.7 % (37.0-47.0) H 51.6 % (37.0-47.0) H Mean Corpuscular Volume 106 FL (80-99) H 105 FL (80-99) H Mean Corpuscular Hemoglobin 30.6 PG (27.0-31.0) 31.4 PG (27.0-31.0) H Mean Corpuscular Hemoglobin Concent 28.9 G/DL (32.0-36.0) L 30.0 G/DL (32.0-36.0) L Red Cell Distribution Width 16.0 % (11.6-14.8) H 16.3 % (11.6-14.8) H Platelet Count 165 K/UL (150-450) 158 K/UL (150-450) Mean Platelet Volume 10.1 FL (6.5-10.1) 10.4 FL (6.5-10.1) H Neutrophils (%) (Auto) % (45.0-75.0) 79.5 % (45.0-75.0) H Lymphocytes (%) (Auto) % (20.0-45.0) 13.7 % (20.0-45.0) L Monocytes (%) (Auto) % (1.0-10.0) 6.1 % (1.0-10.0) Eosinophils (%) (Auto) % (0.0-3.0) 0.3 % (0.0-3.0) Basophils (%) (Auto) % (0.0-2.0) 0.4 % (0.0-2.0) Differential Total Cells Counted 100 Neutrophils % (Manual) 87 % (45-75) H Lymphocytes % (Manual) 8 % (20-45) L Monocytes % (Manual) 4 % (1-10) Eosinophils % (Manual) 0 % (0-3) Basophils % (Manual) 0 % (0-2) Band Neutrophils 1 % (0-8) Platelet Estimate Adequate Platelet Morphology Normal Polychromasia 1+ Anisocytosis 1+ Macrocytosis 2+ Sodium Level 149 mEQ/L (135-145) H 152 mEQ/L (135-145) H Potassium Level 3.6 mEQ/L (3.4-4.9) 3.6 mEQ/L (3.4-4.9) Chloride Level 98 mEQ/L (98-107) 100 mEQ/L (98-107) Carbon Dioxide Level 44 mEQ/L (20-30) *H 42 mEQ/L (20-30) *H Anion Gap 7 (5-15) 10 (5-15) Blood Urea Nitrogen 13 mg/dL (7-23) 12 mg/dL (7-23) Creatinine 0.6 mg/dL (0.5-0.9) 0.6 mg/dL (0.5-0.9) Estimat Glomerular Filtration Rate > 60 mL/min (>60) > 60 mL/min (>60) Glucose Level 97 mg/dL (74-106) 92 mg/dL (74-106) Calcium Level 9.1 mg/dL (8.6-10.2) 8.9 mg/dL (8.6-10.2) Total Bilirubin 0.4 mg/dL (0.0-1.2) 0.4 mg/dL (0.0-1.2) Aspartate Amino Transf (AST/SGOT) 26 U/L (5-40) 23 U/L (5-40) Alanine Aminotransferase (ALT/SGPT) 33 U/L (3-33) 28 U/L (3-33) Alkaline Phosphatase 42 U/L (35-104) 40 U/L (35-104) Pro-B-Type Natriuretic Peptide 2492 pg/mL (0-125) H Total Protein 6.1 g/dL (6.6-8.7) L 5.8 g/dL (6.6-8.7) L Albumin 3.6 g/dL (3.5-5.2) 3.2 g/dL (3.5-5.2) L Globulin 2.5 g/dL 2.6 g/dL Albumin/Globulin Ratio 1.4 (1.0-2.7) 1.2 (1.0-2.7) Carcinoembryonic Antigen 4.1 ng/mL H Current Medications Medications (Trade) Dose Ordered Sig/Jud Route PRN Reason Start Time Stop Time Status Last Admin Dose Admin Albuterol/ Ipratropium (DuoNeb 0.5-3(2.5)mg/3ml) 3 ml Q4HRT HHN 11/05/16 15:00 11/10/16 14:59 11/05/16 16:15 Dextrose (Dextrose 50%) STAT PRN IV Hypoglycemia 10/31/16 18:00 11/30/16 17:59 Furosemide (Lasix) 20 mg DAILY IV 11/04/16 09:00 12/04/16 08:59 11/05/16 08:07 Heparin Sodium (Porcine) (Heparin 5000 units/ml) 5,000 units EVERY 12 HOURS SUBQ 10/31/16 21:00 11/30/16 20:59 11/05/16 08:26 Insulin Aspart (NovoLOG) BEFORE MEALS AND HS SUBQ 10/31/16 21:00 11/30/16 20:59 11/01/16 21:01 Lorazepam (Ativan 2mg/ml 1ml) 0.5 mg Q4H PRN IV For Anxiety 10/31/16 18:00 11/07/16 17:59 11/05/16 16:10 Mirtazapine (Remeron) 45 mg BEDTIME ORAL 10/31/16 21:00 11/30/16 20:59 11/04/16 20:33 Morphine Sulfate (Morphine Sulfate) 1 mg Q4H PRN IVP Severe Pain (Pain Scale 7-10) 11/02/16 10:00 11/09/16 09:59 11/03/16 03:37 Nitroglycerin (Ntg) 0.4 mg Q5M X 3 DOSES PRN SL Prn Chest Pain 10/31/16 18:00 11/30/16 17:59 Ondansetron HCl (Zofran) 4 mg Q6H PRN IVP Nausea & Vomiting 10/31/16 18:45 11/30/16 18:44 Patient Own Medication (Patient's Own Med) 1 ea DAILY ORAL 11/03/16 11:00 12/03/16 10:59 11/05/16 08:25 Piperacillin Sod/ Tazobactam Sod/ Dextrose (Zosyn/D5W) 110 ml @ 27.5 mls/hr Q8H IVPB 10/31/16 19:00 11/05/16 23:59 11/05/16 11:32 Prednisone (predniSONE) 40 mg DAILY ORAL 11/04/16 09:00 12/04/16 08:59 11/05/16 08:26 Promethazine HCl/ Codeine (Phenergan with Codeine) 5 ml Q6H PRN ORAL cough 10/31/16 18:45 11/30/16 18:44 11/03/16 02:42 Temazepam (Restoril) 15 mg HSPRN PRN ORAL Insomnia 10/31/16 21:00 11/07/16 20:59 11/05/16 01:26 Theophylline (Alli-Dur) 100 mg DAILY ORAL 11/01/16 09:00 12/01/16 08:59 11/05/16 08:25 Ziprasidone (Geodon) 80 mg QHS ORAL 11/03/16 22:00 12/03/16 21:59 11/04/16 20:43 RAINA HENSLEY Nov 05, 2016 18:04
--- NOTE | 2016-11-05 18:26 | Neurology Progress Note ---
Interim History Interim History ROS Limited/Unobtainable: Yes Objective Physical Exam Last Vital Signs Date Time Temp Pulse Resp B/P Pulse Ox O2 Delivery O2 Flow Rate FiO2 11/05/16 16:26 94 18 97 Nasal Cannula 2.0 28 11/05/16 16:06 97.2 136/95 Laboratory Tests Test 11/04/16 18:30 11/05/16 05:35 White Blood Count 13.8 K/UL (4.8-10.8) H 10.8 K/UL (4.8-10.8) Red Blood Count 5.26 M/UL (4.20-5.40) 4.93 M/UL (4.20-5.40) Hemoglobin 16.1 G/DL (12.0-16.0) H 15.5 G/DL (12.0-16.0) Hematocrit 55.7 % (37.0-47.0) H 51.6 % (37.0-47.0) H Mean Corpuscular Volume 106 FL (80-99) H 105 FL (80-99) H Mean Corpuscular Hemoglobin 30.6 PG (27.0-31.0) 31.4 PG (27.0-31.0) H Mean Corpuscular Hemoglobin Concent 28.9 G/DL (32.0-36.0) L 30.0 G/DL (32.0-36.0) L Red Cell Distribution Width 16.0 % (11.6-14.8) H 16.3 % (11.6-14.8) H Platelet Count 165 K/UL (150-450) 158 K/UL (150-450) Mean Platelet Volume 10.1 FL (6.5-10.1) 10.4 FL (6.5-10.1) H Neutrophils (%) (Auto) % (45.0-75.0) 79.5 % (45.0-75.0) H Lymphocytes (%) (Auto) % (20.0-45.0) 13.7 % (20.0-45.0) L Monocytes (%) (Auto) % (1.0-10.0) 6.1 % (1.0-10.0) Eosinophils (%) (Auto) % (0.0-3.0) 0.3 % (0.0-3.0) Basophils (%) (Auto) % (0.0-2.0) 0.4 % (0.0-2.0) Differential Total Cells Counted 100 Neutrophils % (Manual) 87 % (45-75) H Lymphocytes % (Manual) 8 % (20-45) L Monocytes % (Manual) 4 % (1-10) Eosinophils % (Manual) 0 % (0-3) Basophils % (Manual) 0 % (0-2) Band Neutrophils 1 % (0-8) Platelet Estimate Adequate Platelet Morphology Normal Polychromasia 1+ Anisocytosis 1+ Macrocytosis 2+ Sodium Level 149 mEQ/L (135-145) H 152 mEQ/L (135-145) H Potassium Level 3.6 mEQ/L (3.4-4.9) 3.6 mEQ/L (3.4-4.9) Chloride Level 98 mEQ/L (98-107) 100 mEQ/L (98-107) Carbon Dioxide Level 44 mEQ/L (20-30) *H 42 mEQ/L (20-30) *H Anion Gap 7 (5-15) 10 (5-15) Blood Urea Nitrogen 13 mg/dL (7-23) 12 mg/dL (7-23) Creatinine 0.6 mg/dL (0.5-0.9) 0.6 mg/dL (0.5-0.9) Estimat Glomerular Filtration Rate > 60 mL/min (>60) > 60 mL/min (>60) Glucose Level 97 mg/dL (74-106) 92 mg/dL (74-106) Calcium Level 9.1 mg/dL (8.6-10.2) 8.9 mg/dL (8.6-10.2) Total Bilirubin 0.4 mg/dL (0.0-1.2) 0.4 mg/dL (0.0-1.2) Aspartate Amino Transf (AST/SGOT) 26 U/L (5-40) 23 U/L (5-40) Alanine Aminotransferase (ALT/SGPT) 33 U/L (3-33) 28 U/L (3-33) Alkaline Phosphatase 42 U/L (35-104) 40 U/L (35-104) Pro-B-Type Natriuretic Peptide 2492 pg/mL (0-125) H Total Protein 6.1 g/dL (6.6-8.7) L 5.8 g/dL (6.6-8.7) L Albumin 3.6 g/dL (3.5-5.2) 3.2 g/dL (3.5-5.2) L Globulin 2.5 g/dL 2.6 g/dL Albumin/Globulin Ratio 1.4 (1.0-2.7) 1.2 (1.0-2.7) Carcinoembryonic Antigen 4.1 ng/mL H Impression/Recommendations Problems: (1) Delirium due to another medical condition, persistent, hyperactive (2) h/o chronic psych d/o (3) Hypernatremia (4) HIV disease (5) Pneumonia (6) COPD (chronic obstructive pulmonary disease) Status: deteriorating Recommendations d/w sister d/w OSIRIS dictated #[id number] REAGAN RIDER Nov 05, 2016 18:26
[2016-11-05 20:00] VITALS: BP 114/65
[2016-11-05] MEDS: Morphine Sulfate 2mg/ml Inj IVP PRN (21:20)
[2016-11-05] MEDS: Ziprasidone 20mg cap ORAL SCH (21:21)
--- NOTE | 2016-11-05 22:38 | Consultation ---
DATE OF CONSULTATION: 11/05/2016 NEUROLOGICAL CONSULTATION CONSULTING PHYSICIAN: Melo Alfonso M.D. REQUESTING PHYSICIAN: Massiel Wong M.D. HISTORY OF PRESENT ILLNESS: This is a 51-year-old female seen in neurological consultation to evaluate the new change in her mental status. For the last three to four days, the patient was increasingly confused, disoriented, drowsy, snoring, and nighttime noted involuntary jerking. The patient with a history of chronic obstructive pulmonary disease and positive human immunodeficiency virus developed tachypnea, shortness of breath, accessory muscle use, [id number] distress, and not relieved by inhalers and home albuterol nebulizers. Paramedics were called to the scene. Vital signs were stable. Blood pressure 112/69, heart rate of 92, blood sugar 84, and respirations 20. The patient was brought to the emergency room complaining of wheezing and shortness of breath since 4 p.m. She reported a history of asthma and complained that the inhaler was not helping, but she was initially hypoxic, but slowly improved with a breathing treatment. Her vital signs remained stable. Her chest x-ray, a right middle lobe infiltrate. EKG, no ischemic changes noted. Lab work included a CBC study with WBC 17.0, elevated hemoglobin of 16.3, and hematocrit 54.3. Chemistry panel, carbon dioxide of 42, sodium 152, BNP of 2492, albumin down to 3.2, and CA is 4.1. LDH 294. Her CD4 was 257 and her serology negative for RPR, cryptococcus. The patient was started on IV fluids and antibiotics and respiratory therapy. Latest chest x-ray, right upper lobe presumed consolidation, slightly improved over three days. Follow up was recommended to exclude presence of underlying mass. Today after my examination, stat CT of the brain was obtained. This revealed no intracranial abnormalities, no midline shift, no mass, and no hemorrhage. PAST MEDICAL HISTORY: The patient has a history of human immunodeficiency virus, diabetes type 2, schizophrenia, bronchial asthma, and chronic obstructive pulmonary disease. She has a history of low back pain and history of aortic aneurysm. MEDICATIONS: Treatment prior to admission included albuterol, antiviral agents, mirtazapine 15 mg three tablets at bedtime, oxybutynin 5 mg b.i.d., Topamax 100 mg b.i.d., and Geodon 80 mg at daytime. ALLERGIES: Sulfa drugs. SOCIAL HISTORY: The patient lives single. No information regarding drug abuse or smoking. FAMILY HISTORY: Noncontributory. REVIEW OF SYMPTOMS: The patient was quite agitated and did not provide any history. Only complaining that she has a broken bed to be replaced. PHYSICAL EXAMINATION: GENERAL: Well-developed and well-nourished female, not in acute distress, somewhat anxious and restless. VITAL SIGNS: Included blood pressure 136/95, temperature 97.2 degrees, and heart rate of 105. Oxygen per nasal cannula. HEENT: Head normocephalic. No evidence of trauma. Eyes, ears, and throat are clear. NECK: Supple. No meningeal signs. MUSCULOSKELETAL EXAMINATION: Unremarkable except diffuse rigidity. Peripheral pulses, 1+ and symmetric. MENTAL STATUS: The patient is alert and has a brief eye contact. She was able to give her name and age, but unable to recall her doctor or treating physician, poor historian. Often angry and would not like to talk. CRANIAL NERVE II: Pupils both responding to light and accommodation. Extraocular movement intact. No nystagmus. CRANIAL NERVE V: Normal corneal responses. CRANIAL NERVE VII: No facial asymmetry. CRANIAL NERVE VIII: Grossly normal hearing. CRANIAL NERVES IX THROUGH XII: Tongue is in midline. Symmetric palate elevation. MOTOR EXAMINATION: Revealed a normal muscle tone, but able to lift arms against the gravity, lesser degree lower extremity. Deep tendon reflexes, 1+ bilaterally with plantar responses flexor. No pathological responses. SENSORY EXAMINATION: Withdrawing to pin stimulation. GAIT: Not tested. The patient was noncompliant. IMPRESSION: 1. This is a 51-year-old female, presenting now with acute confusional state, most likely representing delirium, multifactorial. 2. Hypernatremia. 3. Human immunodeficiency virus/acquired immunodeficiency syndrome. 4. Acute pneumonia. 5. Chronic obstructive pulmonary disease exacerbation. 6. History of schizophrenia. Now, rule out a seizure activity, rule out toxic metabolic encephalopathy due to underlying hypoxia and hypernatremia. DISCUSSION: The patient developed an acute delirium in the last two to three days reflecting no improvement on the treatment. There is no evidence of meningeal signs. No evidence of meningitis or encephalitis. CAT scan of the brain without contrast was rather unremarkable. I will obtain electroencephalogram. Continue with rehydration. Continue with intravenous fluids and antibiotics. Monitor chest x-ray. May need CT of the chest to rule out malignancy, lesion-enhancing. May use Ativan 1 mg q.2 h. for acute agitation. Thank you for allowing me to see this interesting patient in neurological consultation. Melo Filiberto Alfonso DR: RAD JOB#: [id number] CC:
[2016-11-06] VITALS: BP 147/92
[2016-11-06] MEDS: Morphine Sulfate 2mg/ml Inj IVP PRN (02:49)
[2016-11-06] MEDS: DuoNeb 0.5-3(2.5)mg/3ml neb HHN SCH ×5 (03:00→19:00)
[2016-11-06 04:00] VITALS: BP 129/83
[2016-11-06] MEDS: NovoLOG Insulin Flexpen SUBQ SCH ×3 (06:41→16:40)
[2016-11-06 08:00] VITALS: BP 131/77
[2016-11-06] MEDS: Theophylline ER 100mg ORAL SCH (10:52)
[2016-11-06] MEDS: PredniSONE 20mg tab ORAL SCH (10:52)
[2016-11-06] MEDS: Heparin 5000 units/ml inj SUBQ SCH (10:55)
[2016-11-06 12:00] VITALS: BP 121/73
--- NOTE | 2016-11-06 13:03 | Neurology Progress Note ---
Interim History Interim History ROS Limited/Unobtainable: Yes Complaints: feel better Events: more coherent, awake Objective Physical Exam Last Vital Signs Date Time Temp Pulse Resp B/P Pulse Ox O2 Delivery O2 Flow Rate FiO2 11/06/16 11:13 98 20 95 Nasal Cannula 2.0 28 11/06/16 08:00 98.2 131/77 General: well developed, no acute distress Head: normocophalic, atraumatic Neck: no rigidity Neurologic Exam Mental Status: awake, alert, oriented x4, other - restless but coherent Speech: normal speech, no dysarthia Language: normal language, no aphasia Cranial Nerve II: fundus normal, visual jean baptiste, no papilledema Cranial Nerves III, IV, : PERRLA, EOMI, pupils Cranial Nerve V: normal facial sensations, temporales function normal, masseters function normal, pterygoids function normal Cranial Nerve VII: no facial asymmetry, normal facial expressions Cranial Nerve VIII: normal hearing, no nystagmus Cranial Nerve IX: normal palate elevation, gag response Cranial Nerve X: no voice hoarseness Cranial Nerve XI: SCM symmetric, trapezii function normal Cranial Nerve XII: tongue midline, no tongue atrophy/fasciculations Motor System: normal muscle tone, strength 5/5, no involuntary movement, no muscle wasting Sensory: normal pinprick Coordination: normal finger to nose bilaterally Deep Tendon Reflexes: 1+ ankle (L), 1+ ankle (R), 1+ bicep (L), 1+ bicep (R), 1 + brachioradialis (L), 1+ brachioradialis (R), 1+ knee (L), 1+ knee (R), 1+ tricep (L), 1+ tricep (R) Reflexes: mute plantar (L), mute plantar (R) Impression/Recommendations Problems: (1) Delirium due to another medical condition, persistent, hyperactive (2) h/o chronic psych d/o (3) Hypernatremia (4) HIV disease (5) Pneumonia (6) COPD (chronic obstructive pulmonary disease) Status: doing well Recommendations d/w sister/ family d/w RN dictated #[id number] avoid sedating meds , opiates. cont present rx REAGAN RIDER Nov 06, 2016 13:03
[2016-11-06 15:50] VITALS: BP 120/78
--- NOTE | 2016-11-06 16:37 | Infectious Diseases Prog Note ---
Assessment/Plan Assessment/Plan ASSESSMENT: 51 y/o female with: // Asthma exacerbation / Pna - SCx not sent, coccidiodes indeterminant - CXR 11/03: Right upper lobe opacity, presumed consolidation, stable or slightly improved over 3 days - h/o K.pneumoniae - negative: CrAg // HIV(+), on triumeq - CD4 257(32%), VL < 20 as per pt // Leukocytosis - resolved, afebrile ( tapering steroids ) // Tobacco abuse // Negative RPR // Negative MRSA, VRE screens // Sulfa allergy // Full Code PLAN: - Monitor pt off of ABX ( 11/05 SP zosyn d# 7 / ) ( 11/04 SP azithromycin d# / ) - continue cART ( triumeq ) - ok for pt to take own med - taper steroids per pulm - monitor CBC, temperatures, re-culture if acute change - monitor BMP - monitor CXR - tobacco cessation Subjective Allergies: Coded Allergies: SULFA (SULFONAMIDE ANTIBIOTICS) (Verified Allergy, Unknown, 08/05/16) Subjective remains afebrile. WBC resolved no new complaint Objective Vital Signs Last 24 Hour Vital Signs Date Time Temp Pulse Resp B/P Pulse Ox O2 Delivery O2 Flow Rate FiO2 11/06/16 15:50 97.9 109 19 120/78 92 Room Air 11/06/16 15:01 95 20 96 Nasal Cannula 2.0 28 11/06/16 14:52 95 18 95 Nasal Cannula 2.0 28 11/06/16 12:00 99.1 102 18 121/73 91 Nasal Cannula 2.0 11/06/16 11:13 98 20 95 Nasal Cannula 2.0 28 11/06/16 11:03 98 18 94 Nasal Cannula 2.0 28 11/06/16 08:00 98.2 103 18 131/77 90 Nasal Cannula 2.0 11/06/16 06:28 105 20 95 Nasal Cannula 2.0 28 11/06/16 06:19 93 Nasal Cannula 2.0 28 11/06/16 06:19 100 18 93 Nasal Cannula 2.0 28 11/06/16 06:19 100 18 Nasal Cannula 2.0 28 11/06/16 06:19 Nasal Cannula 2.0 28 11/06/16 04:00 97.7 108 22 129/83 94 Room Air 11/06/16 03:30 Nasal Cannula 11/06/16 03:29 Nasal Cannula 11/06/16 00:00 98.2 110 20 147/92 94 Nasal Cannula 2.0 11/05/16 23:19 88 20 97 Nasal Cannula 2.0 28 11/05/16 23:13 90 20 95 Nasal Cannula 2.0 28 11/05/16 20:00 98.0 100 21 114/65 95 Nasal Cannula 2.0 11/05/16 19:28 85 18 96 Nasal Cannula 2.0 28 11/05/16 19:20 82 20 96 Nasal Cannula 2.0 28 11/05/16 19:10 Nasal Cannula 2.0 28 11/05/16 19:10 93 18 Nasal Cannula 2.0 28 11/05/16 19:10 95 Nasal Cannula 2.0 28 Height (Feet): 5 Height (Inches): 6.00 Weight (Pounds): 190 General Appearance: no acute distress Respiratory/Chest: no respiratory distress Cardiovascular: normal rate, regular rhythm Abdomen: normal bowel sounds, soft, non tender, non distended Current Medications Medications (Trade) Dose Ordered Sig/Jud Route PRN Reason Start Time Stop Time Status Last Admin Dose Admin Albuterol/ Ipratropium (DuoNeb 0.5-3(2.5)mg/3ml) 3 ml Q4HRT HHN 11/05/16 15:00 11/10/16 14:59 11/06/16 14:51 Dextrose (Dextrose 50%) STAT PRN IV Hypoglycemia 10/31/16 18:00 11/30/16 17:59 Furosemide (Lasix) 20 mg DAILY IV 11/04/16 09:00 12/04/16 08:59 11/06/16 10:52 Heparin Sodium (Porcine) (Heparin 5000 units/ml) 5,000 units EVERY 12 HOURS SUBQ 10/31/16 21:00 11/30/16 20:59 11/06/16 10:55 Insulin Aspart (NovoLOG) BEFORE MEALS AND HS SUBQ 10/31/16 21:00 11/30/16 20:59 11/06/16 13:31 Lorazepam (Ativan 2mg/ml 1ml) 0.5 mg Q4H PRN IV For Anxiety 10/31/16 18:00 11/07/16 17:59 11/05/16 16:10 Mirtazapine (Remeron) 45 mg BEDTIME ORAL 10/31/16 21:00 11/30/16 20:59 11/05/16 21:20 Morphine Sulfate (Morphine Sulfate) 1 mg Q4H PRN IVP Severe Pain (Pain Scale 7-10) 11/02/16 10:00 11/09/16 09:59 11/06/16 02:49 Nitroglycerin (Ntg) 0.4 mg Q5M X 3 DOSES PRN SL Prn Chest Pain 10/31/16 18:00 11/30/16 17:59 Ondansetron HCl (Zofran) 4 mg Q6H PRN IVP Nausea & Vomiting 10/31/16 18:45 11/30/16 18:44 Patient Own Medication (Patient's Own Med) 1 ea DAILY ORAL 11/03/16 11:00 12/03/16 10:59 11/06/16 10:52 Prednisone (predniSONE) 40 mg DAILY ORAL 11/04/16 09:00 12/04/16 08:59 11/06/16 10:52 Promethazine HCl/ Codeine (Phenergan with Codeine) 5 ml Q6H PRN ORAL cough 10/31/16 18:45 11/30/16 18:44 11/03/16 02:42 Temazepam (Restoril) 15 mg HSPRN PRN ORAL Insomnia 10/31/16 21:00 11/07/16 20:59 11/06/16 01:12 Theophylline (Alli-Dur) 100 mg DAILY ORAL 11/01/16 09:00 12/01/16 08:59 11/06/16 10:52 Ziprasidone (Geodon) 80 mg QHS ORAL 11/03/16 22:00 12/03/16 21:59 11/05/16 21:21 RAINA HENSLEY Nov 06, 2016 16:37
--- NOTE | 2016-11-07 16:27 | Discharge Summary ---
Discharge Summary Hospital Course Date of Admission Oct 29, 2016 at 22:25 Date of Discharge Nov 06, 2016 at 20:58 Admitting Diagnosis asthma/PNA HPI Suresh Pearce is a 51 year old female who was admitted on Oct 29, 2016 at 22: 25 for Asthma,Pneumonia Hospital Course [id number] Discharge Discharge Disposition Patient was discharged to Home (01) Discharge Diagnoses: Sirena Bettencourt NP Nov 07, 2016 16:27
--- NOTE | 2016-11-08 02:19 | Discharge Summary 2 SIG ---
DATE OF ADMISSION: 10/29/2016 DATE OF DISCHARGE: 11/06/2016 CONSULTANTS: 1. Melo Alfonso M.D. 2. Stew Rodriguez M.D. BRIEF HOSPITAL COURSE: The patient is a 51-year-old female with history of asthma and human immunodeficiency virus presented to ED for evaluation of shortness of breath. Per EMS report, the patient was initially hypoxic and was slowly improving with breathing treatments. Chest x-ray showed right upper lung infiltrate. The patient was admitted for pneumonia and was started on IV steroids and IV antibiotics with chest physiotherapy and respiratory treatment. Dr. Turner was consulted. The patient has history of human immunodeficiency virus with CD4 count over 200 and would benefit from coverage of atypical bacteria and was given Zosyn and azithromycin. She was continued with the Triumeq. Sputum culture was not sent. Coccidioides was indeterminate. Dr. Alfonso was consulted as there was a change in her mental status as the patient became increasingly confused, disoriented, and drowsy with nighttime noted involuntary jerking. A stat head CT was obtained and revealed no intracranial abnormalities, no midline shift, no mass, and no hemorrhage. The patient developed acute delirium with no evidence of meningeal signs. No evidence of meningitis or encephalitis. She was given Ativan 1 mg p.r.n. agitation. Intravenous steroids were tapered down. She was eventually taken off antibiotics. RPR was negative. The patient was discharged home. FINAL DIAGNOSES: 1. Pneumonia. 2. Human immunodeficiency virus. 3. Acute asthma exacerbation. 4. Acute delirium, with behavioral changes. 5. Hypernatremia. 6. Schizophrenia. 7. Tobacco abuse. Massiel Wong M.D. I have been assigned to dictate discharge summary on this account and I was not involved in the patient's management. Sirena Bettencourt N.P. DR: MARIEL JOB#: [id number] CC: MARK
--- NOTE | 2016-11-10 11:03 | Cardiology Report ---
APPROVED REPORT EXAM: Two-dimensional and M-mode echocardiogram with Doppler and color Doppler. INDICATION Left ventricular function M-Mode DIMENSIONS IVSd0.6 (0.7-1.1cm)Left Atrium (MM)4.0 (1.6-4.0cm) LVDd4.1 (3.5-5.6cm)Aortic Root2.6 (2.0-3.7cm) PWd0.8 (0.7-1.1cm)Aortic Cusp Exc.1.8 (1.5-2.0cm) LVDs2.6 (2.5-4.0cm) PWs1.0 cm Normal left ventricular chamber size, systolic function and wall motion. Left ventricular ejection fraction estimated to be 60-65 %. No evidence of left ventricular hypertrophy. Small posterior pericardial effusion. Left cardiac chamber sizes are within normal limits. Mild left atrial enlargement. Moderate right atrial enlargement by 2D. Mild right ventricular enlargement by 2D. Left ventricle D-shape, consistent with right ventricle overload pattern. Focal aortic valve sclerosis with adequate cusp excursion Thickened mitral valve leaflets with normal excursion. Mitral annulus and aortic root calcification. Pulmonic valve not well visualized. Normal tricuspid valve structure. IVC dilated at 3.1cm with minimal physiologic collapse. RA pressure of 15mmHg. A color flow and spectral Doppler study was performed and revealed: No aortic regurgitation. No mitral regurgitation. Left ventricular diastolic dysfunction grade 1. Moderate tricuspid regurgitation. Tricuspid systolic velocities suggests peak right ventricular systolic pressure of 75 mmHg Consistent with severe pulmonary hypertension.
--- NOTE | 2016-11-18 14:10 | Diagnostic Imaging Report ---
Indications: DYSPNEA Technique: Portable AP chest Findings: Comparison: 11/03/2016 Cardiomegaly, mild pulmonary vascular redistribution bilateral interstitial prominence, focal alveolar opacity right upper lobe, linear opacity right midlung unchanged. No new abnormality identified. IMPRESSION: Stable bilateral congestive changes Stable subsegmental atelectasis right midlung Stable alveolar opacity right upper lung--atelectasis versus pneumonia
== END 2016-11-06 20:58 | disposition home or self-care (01) | DRG 892 ==
LOC: EDBD 18:50 → EMR 19:20 → 2E 22:25 → EDBEDREQ 22:43 → EMR 10-30 00:40 → 2E 10-30 21:28 → 3E 10-31 18:00
DX: J18.9 Pneumonia, unspecified organism (principal); B20 Human immunodeficiency virus [HIV] disease; J96.01 Acute respiratory failure with hypoxia; E87.0 Hyperosmolality and hypernatremia; J44.1 Chronic obstructive pulmonary disease with (acute) exacerbation; J45.901 Unspecified asthma with (acute) exacerbation; Z88.2 Allergy status to sulfonamides; F20.9 Schizophrenia, unspecified; F17.200 Nicotine dependence, unspecified, uncomplicated; E11.9 Type 2 diabetes mellitus without complications; F05 Delirium due to known physiological condition
CPT/HCPCS: 36415; 70450; 71010; 80048; 80053; 82378; 82550; 82553; 82962; 83605; 83615; 83880; 84484; 85007; 85025; 86360; 86580; 86592; 86635; 86777; 86778; 87040; 87449; 93005; 93306; 94640; 94664; 94760; J1815; J7620